=== PATIENT | male | born 1985 | race Caucasian/White ===

== ENCOUNTER 2019-11-17 18:02 | Observation (INO) | payer OTHER ==
--- NOTE | 2019-11-17 18:12 | PDOC ---
Rapid Medical Evaluation Time Seen by Provider: 11/17/19 18:08 Medical Evaluation: Allergies Allergy/AdvReac Type Severity Reaction Status Date / Time No Known Allergies Allergy Verified 04/12/13 12:42 11/17/19 18:09 I have performed a brief in-person evaluation of this patient. CC: left sided chest pain x3 days PE: RRR. No m/r/g. Left pectoral tenderness. Lungs CTAB. Orders: cardiac w/u Patient to proceed to ED for Further evaluation. Discharge Disposition - Diagnosis Musculoskeletal chest pain - Referrals - Patient Instructions - Post Discharge Activity
[2019-11-17 18:17] VITALS: BMI 29.5
--- NOTE | 2019-11-17 19:37 | PDOC ---
History of Present Illness - General Chief Complaint: Chest Pain Stated Complaint: CHEST PAIN Time Seen by Provider: 11/17/19 18:08 - History of Present Illness Initial Comments: 11/17/19 21:03 34 year old man with no pmhx whop resents with 3 days of L sided chest cramping and palpitations that comes on for 30mins at time and is associated with lightheadedness, dizziness and shortness of breath. He reports that the symptosm occur only while walking but occasionally occur when he is lying still. He also reports some tingling in hte L arm. He came in today because his symptoms were worse today. He denies any other complaints or symptoms. ROS GENERAL/CONSTITUTIONAL: No fever or chills. No weakness. HEAD, EYES, EARS, NOSE AND THROAT: No change in vision. No ear pain or discharge. No sore throat. CARDIOVASCULAR: + chest pain or shortness of breath RESPIRATORY: No cough, wheezing, or hemoptysis. GASTROINTESTINAL: No nausea, vomiting, diarrhea or constipation. GENITOURINARY: No dysuria, frequency, or change in urination. MUSCULOSKELETAL: No joint or muscle swelling or pain. No neck or back pain. SKIN: No rash NEUROLOGIC: No headache, vertigo, loss of consciousness, or change in strength/sensation. ENDOCRINE: No increased thirst. No abnormal weight change HEMATOLOGIC/LYMPHATIC: No anemia, easy bleeding, or history of blood clots. ALLERGIC/IMMUNOLOGIC: No hives or skin allergy. PE GENERAL: Awake, alert, and fully oriented, in no acute distress HEAD: No signs of trauma, normocephalic, atraumatic EYES: EOMI, sclera anicteric, conjunctiva clear ENT: oropharynx clear without exudates. Moist mucosa NECK: Normal ROM, supple LUNGS: No distress, speaks full sentences, clear to auscultation bilaterally HEART: Regular rate and rhythm, normal S1 and S2, no murmurs, rubs or gallops, peripheral pulses normal and equal bilaterally. CHEST: chest wall ttp ABDOMEN: Soft, nontender. No guarding, no rebound. No masses EXTREMITIES : Normal inspection, Normal range of motion, no edema. No clubbing or cyanosis. NEUROLOGICAL: Cranial nerves II through XII grossly intact. Normal speech, normal gait, no focal sensorimotor deficits SKIN: Warm, Dry, normal turgor, no rashes or lesions noted Assessment and Plan 34 year old man with no pmhx whop resents with 3 days of L sided chest cramping and palpitations that comes on for 30mins at time and is associated with lightheadedness, dizziness and shortness of breath. Consider arrythmia vs ACS vs electroylte derangement - cbc, cmp, trop, bnp, ekg, cxr, coags CXR: wnl EKG: sinus kyle at 49bpm, incomplete RBBB, T wave inversion in III, aVF. Although chest pain reproduible on palpation of the chest wall, pt had concerning story and T wave inversions on ekg per pt he was trying to see a table operator in the past but was unable to due to his insurance status WIll plan for admissio nfor cardiology workup Past History - Medical History Allergies/Adverse Reactions: Allergies Allergy/AdvReac Type Severity Reaction Status Date / Time No Known Allergies Allergy Verified 11/17/19 18:17 Home Medications: Ambulatory Orders Amoxicillin - [Amoxicillin 500mg Capsule -] 500 mg PO BID #20 capsule 11/18/19 COPD: No - Psycho-Social/Smoking History Smoking History: Never smoked Have you smoked in the past 12 months: No Information on smoking cessation initiated: No - Substance Abuse Hx (Audit-C & DAST Scrn) How often the patient has a drink containing alcohol: Never Score: In Men: 4 or > Positive; In Women: 3 or > Positive: 0 Screen Result (Pos requires Nsg. Audit-10AR): Negative *Physical Exam - Vital Signs Last Vital Signs Temp Pulse Resp BP Pulse Ox 99.2 F 53 L 17 139/87 100 11/17/19 18:12 11/17/19 18:12 11/17/19 18:12 11/17/19 18:12 11/17/19 18:12 ED Treatment Course - LABORATORY CBC & Chemistry Diagram: 11/18/19 06:20 11/18/19 06:20 Discharge - Discharge Information Problems reviewed: Yes Clinical Impression/Diagnosis: Chest pain, Near syncope Condition: Improved Disposition: HOME - Follow up/Referral - Patient Discharge Instructions - Post Discharge Activity
--- NOTE | 2019-11-17 19:57 | PDOC ---
Attending Attestation - Resident Resident Name: Theresa Brewer - ED Attending Attestation I have performed the following: I have examined & evaluated the patient, The case was reviewed & discussed with the resident, I agree w/resident's findings & plan - HPI HPI: 11/17/19 21:38 see resident hpi - Physicial Exam PE: 11/17/19 21:38 see resident exam - Medical Decision Making 11/17/19 21:39 34-year-old male with intermittent left-sided chest pain with associated palpitations and lightheadedness, possible near syncope EKG shows T wave abnormalities in leads III and aVF Pain is improved, there is some reproducible component though in light of associated symptoms we will hold for observation serial enzymes and further evaluation Discharge - Discharge Information Problems reviewed: Yes Clinical Impression/Diagnosis: Chest pain, Near syncope - Follow up/Referral - Patient Discharge Instructions - Post Discharge Activity
[2019-11-17 20:46] LABS: BASO % 0.4 % (0-2.0); EOS % 3.4 % (0-4.5); HEMATOCRIT 44.2 % (35.4-49); LYMPH % 28.7 % (8-40); MCHC 33.9 g/dl (32.0-35.9); MEAN CELL VOLUME 91.4 fl (80-96); MEAN PLT VOLUME 10.3 fl (7.5-11.1); MONO % 6.3 % (3.8-10.2); NEUT % 61.2 % (42.8-82.8); PLATELET COUNT 198 K/MM3 (134-434); RBC 4.84 M/mm3 (4.00-5.60); RDW 13.2 % (11.9-15.9); WHITE BLOOD COUNT 5.8 K/mm3 (4.0-10.0)
[2019-11-17 21:04] LABS: ALBUMIN 4.1 g/dl (3.4-5.0); ALK PHOS 90 U/L (45-117); BILIRUBIN,TOTAL 0.9 mg/dL (0.2-1); CHLORIDE 108 mmol/L (98-107); CO2 23 mmol/L (21-32); CREATININE 0.8 mg/dL (0.55-1.3); MAGNESIUM 2.4 mg/dL (1.8-2.4); SGPT/ALT 45 U/L (13-61); SODIUM 140 mmol/L (136-145)
[2019-11-17 21:05] LABS: ANION GAP 10 MMOL/L (8-16); BLOOD UREA NITROGEN 14.5 mg/dL (7-18); CALCIUM 8.7 mg/dL (8.5-10.1); GLUCOSE,RANDOM 81 mg/dL (74-106); POTASSIUM 3.4 mmol/L (3.5-5.1); SGOT/AST 27 U/L (15-37); TOT PROT 7.8 g/dl (6.4-8.2)
[2019-11-17 21:47] LABS: N-TERMINAL BNP 48.4 pg/ml (5-125)
[2019-11-17] MEDS ORDERED: IBUPROFEN 400 MG TABLET (FP) PO STA (23:01)
[2019-11-17] MEDS ORDERED: ASPIRIN 81 MG CHEWABLE TABLETS PO STA (23:11)
[2019-11-17] MEDS ORDERED: FAMOTIDINE 20 MG TABLET PO ONE (23:13)
[2019-11-17] MEDS ORDERED: FAMOTIDINE 20 MG TABLET ONE (23:21)
[2019-11-17] MEDS ORDERED: IBUPROFEN 400 MG TABLET (FP) PO ONE (23:21)
[2019-11-17] MEDS ORDERED: ASPIRIN 325 MG ENTERIC COATED TABLET (FP) ONE (23:21)
[2019-11-18] MEDS ORDERED: KCL 10 MEQ IVPB 10 MEQ/100 ML INFUS.BAG IVPB ONE ×3 (00:05→02:34)
[2019-11-18] MEDS: KCL 10 MEQ IVPB 10 MEQ/100 ML INFUS.BAG IVPB SCH ×3 (00:19→02:40)
[2019-11-18 00:20] LABS: CHOLESTEROL 188 mg/dL (50-200); HDL CHOLESTEROL 47 mg/dL (40-60); LDL CHOLESTEROL (ONLY SJRH) 122 mg/dL (5-100); TRIGLYCERIDES 86 mg/dL (0-150)
--- NOTE | 2019-11-18 00:35 | HP ---
CHIEF COMPLAINT: L sided CP x 3 days HISTORY OF PRESENT ILLNESS: Pt is a 34 yo M with no past medical history presenting to the ED with L sided chest pain for the past 3 days. Pt states it is accompanied with shortness of breath, light headedness, palpitations and L arm tingling that lasts for 30 minutes upon exertion, but does not occur at rest. Pt states this has been ongoing on exertion for the last 3 days but the symptoms worsened today so he decided to come to the ED. He states when there is CP, the pain radiates to the base of his anterior neck and feels like he is becoming SOB. Pt also states he feels the need to "scratch" at his chest despite the area not being pruritic. No rash is seen or appreciated. Pain is reproducible on palpation in the L pectoral region causing wincing. EKG showed sinus bradycardia and T wave inversions in III and aVF. CXR unremarkable. 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 Admits to CP, SOB, light headedness, neck "pain" during these episodes. Denies fever, chills, nausea, vomiting, diarrhea, constipation, urinary or bowel changes. PAST MEDICAL HISTORY: None PAST SURGICAL HISTORY: None Social History: Smoking: Denies Alcohol: Sometimes, drank Patron last night Drugs: Cocaine 5 years ago and occasional marijuana Allergies No Known Allergies Allergy (Verified 11/17/19 18:17) HOME MEDICATIONS: Home Medications Medication Instructions Recorded NK [No Known Home Medication] 11/17/19 REVIEW OF SYSTEMS CONSTITUTIONAL: Absent: fever, chills, diaphoresis, generalized weakness, malaise, loss of appetite, weight change HEENT: Absent: rhinorrhea, nasal congestion, throat pain, throat swelling, difficulty swallowing, mouth swelling, ear pain, eye pain, visual changes CARDIOVASCULAR: Admits to chest pain, light headedness, palpitations Absent: syncope, palpitations, irregular heart rate, lightheadedness, peripheral edema RESPIRATORY: Admits to SOB Absent: cough, dyspnea with exertion, orthopnea, wheezing, stridor, hemoptysis GASTROINTESTINAL: Absent: abdominal pain, abdominal distension, nausea, vomiting, diarrhea, constipation, melena, hematochezia GENITOURINARY: Absent: dysuria, frequency, urgency, hesitancy, hematuria, flank pain, genital pain MUSCULOSKELETAL: Left pectoral pain Absent: myalgia, arthralgia, joint swelling, back pain, neck pain SKIN: Absent: rash, itching, pallor HEMATOLOGIC/IMMUNOLOGIC: Absent: easy bleeding, easy bruising, lymphadenopathy, frequent infections ENDOCRINE: Absent: unexplained weight gain, unexplained weight loss, heat intolerance, cold intolerance NEUROLOGIC: Absent: headache, focal weakness or paresthesias, dizziness, unsteady gait, seizure, mental status changes, bladder or bowel incontinence PSYCHIATRIC: Absent: anxiety, depression, suicidal or homicidal ideation, hallucinations. PHYSICAL EXAMINATION Vital Signs - 24 hr 11/17/19 11/17/19 18:12 21:18 Temperature 99.2 F Pulse Rate 53 L Pulse Rate [ 51 L Radial] Respiratory 17 16 Rate Blood Pressure 139/87 Blood Pressure 102/87 [Left Arm] O2 Sat by Pulse 100 98 Oximetry (%) GENERAL: Awake, alert, and fully oriented, in no acute distress. HEAD: Normal with no signs of trauma. EYES: Pupils equal, round and reactive to light, extraocular movements intact, sclera anicteric, conjunctiva clear. No lid lag. EARS, NOSE, THROAT: Ears normal, nares patent, oropharynx clear without exudates. Moist mucous membranes. NECK: Normal range of motion, supple without lymphadenopathy, JVD, or masses. LUNGS: Breath sounds equal, clear to auscultation bilaterally. No wheezes, and no crackles. No accessory muscle use. HEART: Regular rate and bradycardic, normal S1 and S2 without murmur, rub or gallop. ABDOMEN: Soft, nontender, not distended, normoactive bowel sounds, no guarding, no rebound, no masses. No hepatomegaly or splenomegaly. MUSCULOSKELETAL: Pain to palpation on L pectoral region. Normal range of motion at all joints. No bony deformities or tenderness. No CVA tenderness. UPPER EXTREMITIES: 2+ pulses, warm, well-perfused. No cyanosis. No clubbing. No peripheral edema. LOWER EXTREMITIES: 2+ pulses, warm, well-perfused. No calf tenderness. No peripheral edema. NEUROLOGICAL: Cranial nerves II-XII intact. Normal speech. Normal gait. PSYCHIATRIC: Cooperative. Good eye contact. Appropriate mood and affect. SKIN: Warm, dry, normal turgor, no rashes or lesions noted, normal capillary refill. Laboratory Results - last 24 hr 11/17/19 11/17/19 11/17/19 19:11 19:11 23:30 WBC 5.8 RBC 4.84 Hgb 15.0 Hct 44.2 MCV 91.4 MCH 31.0 MCHC 33.9 RDW 13.2 Plt Count 198 MPV 10.3 Absolute Neuts (auto) 3.5 Neutrophils % 61.2 Lymphocytes % 28.7 Monocytes % 6.3 Eosinophils % 3.4 Basophils % 0.4 Nucleated RBC % 0 Sodium 140 Potassium 3.4 L Chloride 108 H Carbon Dioxide 23 Anion Gap 10 BUN 14.5 Creatinine 0.8 Est GFR (CKD-EPI)AfAm 135.08 Est GFR (CKD-EPI)NonAf 116.55 Random Glucose 81 Calcium 8.7 Magnesium 2.4 Total Bilirubin 0.9 AST 27 ALT 45 Alkaline Phosphatase 90 Creatine Kinase 276 246 Creatine Kinase Index 0.9 CK-MB (CK-2) 2.5 Troponin I < 0.02 < 0.02 B-Natriuretic Peptide 48.4 Total Protein 7.8 Albumin 4.1 Triglycerides 86 Cholesterol 188 Total LDL Cholesterol 122 H HDL Cholesterol 47 TSH 1.36 ASSESSMENT/PLAN: Pt is a 34 yo M with no PMHx presenting with L sided chest pain for the past 3 days accompanied by SOB, neck tightness and light headedness and L arm tingling on exertion lasting 30 mins, and reproducible in nature. #Chest Pain -Rule out ACS -Likely musculoskeletal due to being reproducible on palpation -Ibuprofen 400mg once -Admit to tele-observation -ASA 325mg -Pepcid due to possible symptoms related to GERD with tightness in neck; reports acid reflux symptoms in the past -Repeat EKG in AM -Trops negative x2, third pending in AM -Lipid profile to calculate ASCVD and see if appropriate for medical therapy #Hypokalemia -K+ 3.7, repleted -Follow up CMP in AM FEN -Repleted K+ (3.7) -Sodium controlled diet Prophylaxis -Lovenox 40mg SQ BID daily Dispo Admitted to tele-obs overnight. Trops negative x2, follow up on AM trop #3 and repeat EKG. Lipid profile ordered to determine if should be started on medical therapy. Continue to monitor. Family Medical History Family History: Unable to Obtain, Unremarkable (unremarkable) Problem List - Problem (1) Chest pain Code(s): R07.9 - CHEST PAIN, UNSPECIFIED (2) Near syncope Code(s): R55 - SYNCOPE AND COLLAPSE (3) Pharyngitis Code(s): J02.9 - ACUTE PHARYNGITIS, UNSPECIFIED Visit type - Emergency Visit Emergency Visit: Yes ED Registration Date: 11/17/19 Care time: The patient presented to the Emergency Department on the above date and was hospitalized for further evaluation of their emergent condition. - New Patient This patient is new to me today: Yes Date on this admission: 11/17/19 - Critical Care Critical Care patient: No ATTENDING PHYSICIAN STATEMENT I saw and evaluated the patient. I reviewed the resident's note and discussed the case with the resident. I agree with the resident's findings and plan as documented. SUBJECTIVE: OBJECTIVE: ASSESSMENT AND PLAN:
--- NOTE | 2019-11-18 00:42 | PN ---
Teaching Attending Note Name of Resident: Fabrice Mariscal ATTENDING PHYSICIAN STATEMENT I saw and evaluated the patient. I reviewed the resident's note and discussed the case with the resident. I agree with the resident's findings and plan as documented. SUBJECTIVE: This is a 34 year old man with no significant history who comes to the ED complaining of chest pain. The pain occurs with exertion and is located in the left side of his chest. He reports having palpitations, lightheadedness, and shortness of breath. He has been experiencing symptoms for 3 days. OBJECTIVE: Vital Signs Period Temp Pulse Resp BP Sys/[place] Pulse Ox Last 24 Hr 99.2 F 51-53 16-17 102-139/87-87 98-100 CHEST: (+) left sided tenderness with palpation HEART: S1S2, bradycardic LUNGS: Clear ABDOMEN: Soft, non-tender, non-distended, normal BS EXTREMITIES: No edema Laboratory Tests 11/17/19 11/17/19 11/17/19 19:11 19:11 23:30 WBC 5.8 RBC 4.84 Hgb 15.0 Hct 44.2 MCV 91.4 MCH 31.0 MCHC 33.9 RDW 13.2 Plt Count 198 MPV 10.3 Absolute Neuts (auto) 3.5 Neutrophils % 61.2 Lymphocytes % 28.7 Monocytes % 6.3 Eosinophils % 3.4 Basophils % 0.4 Nucleated RBC % 0 Sodium 140 Potassium 3.4 L Chloride 108 H Carbon Dioxide 23 Anion Gap 10 BUN 14.5 Creatinine 0.8 Est GFR (CKD-EPI)AfAm 135.08 Est GFR (CKD-EPI)NonAf 116.55 Random Glucose 81 Calcium 8.7 Magnesium 2.4 Total Bilirubin 0.9 AST 27 ALT 45 Alkaline Phosphatase 90 Creatine Kinase 276 246 Creatine Kinase Index 0.9 CK-MB (CK-2) 2.5 Troponin I < 0.02 < 0.02 B-Natriuretic Peptide 48.4 Total Protein 7.8 Albumin 4.1 Triglycerides 86 Cholesterol 188 Total LDL Cholesterol 122 H HDL Cholesterol 47 TSH 1.36 Home Medications Medication Instructions Recorded NK [No Known Home Medication] 11/17/19 ASSESSMENT AND PLAN: This is a 34 year old man with no significant history who presented to the ED with left-sided chest pain on exertion associated with palpitations, lightheadedness, and SOB. 1. Chest pain - Likely musculoskeletal as pain is reproducible with palpation - Observe on telemetry - Ibuprofen as needed - Pepcid - Serial troponins, lipid profile - Repeat EKG in AM 2. Hypokalemia - Replete potassium
[2019-11-18 07:47] LABS: BASO % 0.5 % (0-2.0); EOS % 4.7 % (0-4.5); HEMATOCRIT 43.3 % (35.4-49); HEMOGLOBIN 14.6 GM/dL (11.7-16.9); LYMPH % 31.3 % (8-40); MCH 30.8 pg (25.7-33.7); MCHC 33.7 g/dl (32.0-35.9); MEAN CELL VOLUME 91.5 fl (80-96); MEAN PLT VOLUME 9.5 fl (7.5-11.1); MONO % 6.6 % (3.8-10.2); NEUT % 56.9 % (42.8-82.8); PLATELET COUNT 182 K/MM3 (134-434); RBC 4.73 M/mm3 (4.00-5.60); RDW 13.3 % (11.9-15.9); WHITE BLOOD COUNT 4.9 K/mm3 (4.0-10.0)
[2019-11-18 08:02] LABS: ALBUMIN 3.7 g/dl (3.4-5.0); BLOOD UREA NITROGEN 12.8 mg/dL (7-18); CALCIUM 8.5 mg/dL (8.5-10.1); CREATININE 0.8 mg/dL (0.55-1.3); MAGNESIUM 2.6 mg/dL (1.8-2.4); PHOSPHOROUS 3.3 mg/dL (2.5-4.9); POTASSIUM 3.9 mmol/L (3.5-5.1); TOT PROT 6.9 g/dl (6.4-8.2)
[2019-11-18 09:02] VITALS: PULSE 54
[2019-11-18] MEDS ORDERED: FAMOTIDINE 10 MG TABLET PO SCH (10:00)
[2019-11-18] MEDS ORDERED: ENOXAPARIN NA (PORCINE) 40 MG/0.4 ML DISP.SYRIN SQ SCH (10:00)
[2019-11-18] MEDS ORDERED: FAMOTIDINE 20 MG TABLET ONE (11:22)
[2019-11-18] MEDS ORDERED: ENOXAPARIN NA (PORCINE) 40 MG/0.4 ML DISP.SYRIN SQ ONE (11:25)
--- NOTE | 2019-11-18 11:41 | EKG ---
Test Reason : Blood Pressure : / mmHG Vent. Rate : 053 BPM Atrial Rate : 053 BPM P-R Int : 154 ms QRS Dur : 102 ms QT Int : 442 ms P-R-T Axes : 033 001 012 degrees QTc Int : 414 ms SINUS BRADYCARDIA OTHERWISE NORMAL ECG WHEN COMPARED WITH ECG OF 17-NOV-2019 18:08, INCOMPLETE RIGHT BUNDLE BRANCH BLOCK IS NO LONGER PRESENT Confirmed by DELORIS ESCOTO MD ([id number]) on 11/18/2019 11:40:38 AM Referred By: Confirmed By:DELORIS ESCOTO MD
--- NOTE | 2019-11-18 11:51 | EKG ---
Test Reason : Blood Pressure : / mmHG Vent. Rate : 049 BPM Atrial Rate : 049 BPM P-R Int : 152 ms QRS Dur : 118 ms QT Int : 432 ms P-R-T Axes : 027 006 008 degrees QTc Int : 390 ms SINUS BRADYCARDIA INCOMPLETE RIGHT BUNDLE BRANCH BLOCK BORDERLINE ECG NO PREVIOUS ECGS AVAILABLE Confirmed by DELORIS ESCOTO MD ([id number]) on 11/18/2019 11:51:19 AM Referred By: Confirmed By:DELORIS ESCOTO MD
--- NOTE | 2019-11-18 14:23 | PN ---
Teaching Attending Note Name of Resident: Nubia Sigala ATTENDING PHYSICIAN STATEMENT I saw and evaluated the patient. I reviewed the resident's note and discussed the case with the resident. I agree with the resident's findings and plan as documented. 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 complains of L sided chest pain, that has improved compared to yesterday. no N/V. denies any palpitations here or as out pt . He has sore throat. he has episodes of feelign like he was going to pass out, and happened during the encounter where his body felt cold, with no palpitations, no VAZ , no light headedness, and no vertigo. He felt little pressure in L orthodox. otherwise he feels well. 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 no sick contact OBJECTIVE: NAD, awake, alert, cooperative , calm. oropharynx with erythema. + exudate on R side, and a follicular appearance with white heads on L side. Lungs: CTAB CV: RRR, no MRG . during all encounter his HR remained stable and regular Ext : No edema or erythema on upper or lower extremities. TTP over L sided chest ASSESSMENT AND PLAN: 34 y/o man with no sig PMH who presented with L sided chest pain . 1- L sided cp. atypical . no suspicion for ACS. musculoskeletal in etiology. EKG with sinus kyle. no st or TW changes. RBBB that was seen on first EKG, was not present on repeat one . trop neg x 2 no further w/u for CP. tele till later today to evaluate for any arrhythmias. Not sure why he has this feeling of near syncope. ? r/o arrhythmias. cxray is clear. covid pending - Might need prolonged cardiac monitoring as out pt 2- Pharyngitis: viral VS bacterial - obtain rapid strep and cx - follow COVID. - might have to treat with empiric Abx , even if rapid strep is neg , pending throat cx. Possible dc later today , if tele has no events
[2019-11-18 14:39] VITALS: BP 128/73; TEMP 98.8
--- NOTE | 2019-11-18 20:55 | DS ---
Physical Exam: SUBJECTIVE: Patient seen and examined. In no acute distress. Complaining of reproducible chest pain in left pectoralis region made worse when crossing his arm over his chest. Also said he has sore throat and headache. OBJECTIVE: Vital Signs Period Temp Pulse Resp BP Sys/[place] Pulse Ox Last 24 Hr 98.8 F-99.0 F 51-66 12-18 102-128/73-87 97-99 PHYSICAL EXAM GENERAL: The patient is awake, alert, and fully oriented, in no acute distress. HEAD: Normal with no signs of trauma. EYES: PERRL, extraocular movements intact, sclera anicteric, conjunctiva clear. ENT: Throat is erythematous without exudate NECK: Trachea midline, full range of motion, supple. LUNGS: Breath sounds equal, clear to auscultation bilaterally, no wheezes, no crackles, no accessory muscle use. HEART: tachy with regular rhythm. ABDOMEN: Soft, nontender, nondistended MSK: tenderness to palpation along left pectoralis muscles. EXTREMITIES: 2+ pulses, warm, well-perfused, no edema. NEUROLOGICAL: Cranial nerves II through XII grossly intact. Normal speech, gait not observed. PSYCH: Normal mood, normal affect. SKIN: Warm, dry, normal turgor, no rashes or lesions noted. LABS Laboratory Results - last 24 hr 11/17/19 11/17/19 11/17/19 19:11 19:11 23:30 WBC 5.8 RBC 4.84 Hgb 15.0 Hct 44.2 MCV 91.4 MCH 31.0 MCHC 33.9 RDW 13.2 Plt Count 198 MPV 10.3 Absolute Neuts (auto) 3.5 Neutrophils % 61.2 Lymphocytes % 28.7 Monocytes % 6.3 Eosinophils % 3.4 Basophils % 0.4 Nucleated RBC % 0 Sodium 140 Potassium 3.4 L Chloride 108 H Carbon Dioxide 23 Anion Gap 10 BUN 14.5 Creatinine 0.8 Est GFR (CKD-EPI)AfAm 135.08 Est GFR (CKD-EPI)NonAf 116.55 Random Glucose 81 Calcium 8.7 Phosphorus Magnesium 2.4 Total Bilirubin 0.9 AST 27 ALT 45 Alkaline Phosphatase 90 Creatine Kinase 276 246 Creatine Kinase Index 0.9 1.0 CK-MB (CK-2) 2.5 2.5 Troponin I < 0.02 < 0.02 B-Natriuretic Peptide 48.4 Total Protein 7.8 Albumin 4.1 Triglycerides 86 Cholesterol 188 Total LDL Cholesterol 122 H HDL Cholesterol 47 TSH 1.36 Group A Strep Rapid 11/18/19 11/18/19 11/18/19 06:20 06:20 13:45 WBC 4.9 RBC 4.73 Hgb 14.6 Hct 43.3 MCV 91.5 MCH 30.8 MCHC 33.7 RDW 13.3 Plt Count 182 MPV 9.5 Absolute Neuts (auto) 2.8 Neutrophils % 56.9 Lymphocytes % 31.3 Monocytes % 6.6 Eosinophils % 4.7 H Basophils % 0.5 Nucleated RBC % 0 Sodium 140 Potassium 3.9 Chloride 109 H Carbon Dioxide 25 Anion Gap 6 L BUN 12.8 Creatinine 0.8 Est GFR (CKD-EPI)AfAm 135.08 Est GFR (CKD-EPI)NonAf 116.55 Random Glucose 83 Calcium 8.5 Phosphorus 3.3 Magnesium 2.6 H Total Bilirubin 1.0 AST 22 ALT 40 Alkaline Phosphatase 81 Creatine Kinase Creatine Kinase Index CK-MB (CK-2) Troponin I B-Natriuretic Peptide Total Protein 6.9 Albumin 3.7 Triglycerides Cholesterol Total LDL Cholesterol HDL Cholesterol TSH Group A Strep Rapid Negative HOSPITAL COURSE: Patient came to the ED presenting with chest pain that has been worsening over 3 days and a sore throat today. His chest pain has been worse with movement and exertion and today he had SOB. On exam the patient was in no pain at rest and his pain was reproducible with palpation and movement. Two EKGs were done that showed sinus tachycardia. He was monitored with no significant signs of cardiac ischemia or SOB. His rapid strep test was negative. Throat cultures were also sent and are pending. He was discharged with 5 days of amoxicillin and told to follow up with his primary doctor. Date of Admission:11/17/19 Date of Discharge: 11/18/19 Minutes to complete discharge: 30 Discharge Summary Problems reviewed: Yes Reason For Visit: CHEST PAIN Current Active Problems Chest pain (Acute) Near syncope (Acute) Pharyngitis (Acute) Condition: Improved - Instructions Diet, Activity, Other Instructions: You were evaluated in the hospital for left-sided chest pain. Your examination was notable for localized tenderness. Laboratory results were not suggestive of any emergency heart conditions. Your electrocardiogram showed a slower than normal heart rate. Your symptoms were mostly likely due to muscle strain. Your throat soreness prompted testing for Streptococcus, which was negative. You will be prescribed antibiotics as a precautions while your throat culture is pending MEDICATIONS: - START taking Amoxicillin 500mg, twice daily. Take for 10 days Additional Instructions: - please take over the counter ibuprofen for muscle strain - avoid excessive fat intake as labwork showed that you have elevated cholesterol. Aim to lose 5lbs within the next month - stay hydrated Please follow-up with the physicians below: - Primary Care Physician: to discuss your recent hospital stay. Discuss check your cholesterol levels --if you don't have a regular doctor, please come to our [facility] - please follow up with Dr. 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 Due to sore throat you need to quarantine until you are called with your test results for further instructions Referrals: Armond Rincon MD [Staff Physician] - Disposition: HOME - Home Medications Comprehensive Discharge Medication List: Ambulatory Orders Amoxicillin - [Amoxicillin 500mg Capsule -] 500 mg PO BID #20 capsule 11/18/19 This patient is new to me today: Yes Date on this admission: 11/20/19 Emergency Visit: Yes ED Registration Date: 11/17/19 Care time: The patient presented to the Emergency Department on the above date and was hospitalized for further evaluation of their emergent condition. Critical Care patient: No - Discharge Referral Referred to [facility] No ATTENDING PHYSICIAN STATEMENT I saw and evaluated the patient. I reviewed the resident's note and discussed the case with the resident. I agree with the resident's findings and plan as documented. SUBJECTIVE: OBJECTIVE: ASSESSMENT AND PLAN:
== END 2019-11-18 20:30 | disposition home or self-care (01) ==
LOC: JER 18:02 → JERBED 21:07
PROVIDERS: ADMIT Internal Medicine; ATTEND Internal Medicine
PROC: 3E023GC Introduction of Other Therapeutic Substance into Muscle, Percutaneous Approach (ICD-10-PCS; principal; 2019-11-17)
PROC: 3E033GC Introduction of Other Therapeutic Substance into Peripheral Vein, Percutaneous Approach (ICD-10-PCS; 2019-11-17)
DX: R07.9 Chest pain, unspecified (principal); R55 Syncope and collapse; J02.9 Acute pharyngitis, unspecified; Z29.9 Encounter for prophylactic measures, unspecified
CPT/HCPCS: 36415; 71046-TC-FY; 80053; 80061; 82550; 82553; 83721; 83735; 83880; 84100; 84443; 84484; 85025; 87070; 87880; 93005; 93010; 96365; 99285-25; G0378; U0003

== ENCOUNTER 2019-12-10 20:07 | Emergency (ER) | payer OTHER ==
[2019-12-10 20:13] VITALS: BP 133/86; PULSE 54; TEMP 98.7; BMI 28.7
[2019-12-10] MEDS ORDERED: KETOROLAC TROMETHAMINE 30 MG/1 ML VIAL IM ONE (20:55)
[2019-12-10] MEDS ORDERED: KETOROLAC TROMETHAMINE 30 MG/1 ML VIAL ONE (20:59)
--- NOTE | 2019-12-10 21:32 | PDOC ---
History of Present Illness - General Chief Complaint: Sore Throat Stated Complaint: INFECTION/MOUTH Time Seen by Provider: 12/10/19 20:47 History Source: Patient Exam Limitations: No Limitations - History of Present Illness Initial Comments: 12/10/19 21:27 34-year-old male denies past medical history presents complaining of sore throat and right-sided ear pain x 7 days. Presented to ED November 16 for chest pain was admitted and discharged after cardiac work-up, negative cover test and negative strep test given he mentioned sore throat at that time as well. Patient completed 5-day course of amoxicillin approximately 2.5 weeks ago which "made me feel better ". followed up with a major assembler last week which "all resulted well". Denies fever, chills, nausea, vomiting, inability to drink fluids or tolerate meals, abdominal pain, diarrhea, weight loss, changes in speech or any other complaint. ROS: as above PE: GENERAL: well-appearing, NAD, speaking full sentences HEAD: NCAT EYES: Pupils equal, round and reactive to light, sclera anicteric, conjunctiva clear ENT: Mild erythema to right ear canal, pharynx: Mild erythema, no exudate, uvula midline NECK: supple, no lymphadenopathy CHEST: nontender RESP: clear, no w/r/r CARDIO: rrr, no m/g/r ABD: +BS, soft, nontender, non distended BACK: no midline spinal ttp, no CVAT EXTREMITIES: Normal range of motion, no edema NEUROLOGICAL: Normal speech, normal gait SKIN: Warm, Dry Is this a multiple visit Asthma Patient?: No Past History - Medical History Allergies/Adverse Reactions: Allergies Allergy/AdvReac Type Severity Reaction Status Date / Time No Known Allergies Allergy Verified 12/10/19 20:13 Home Medications: Ambulatory Orders Amoxicillin - [Amoxicillin 500mg Capsule -] 500 mg PO BID #20 capsule 11/18/19 Amoxicillin - [Amoxicillin 500mg Capsule -] 500 mg PO BID #14 capsule 12/10/19 COPD: No - Psycho-Social/Smoking History Smoking History: Never smoked Have you smoked in the past 12 months: No - Substance Abuse Hx (Audit-C & DAST Scrn) How often the patient has a drink containing alcohol: Never Score: In Men: 4 or > Positive; In Women: 3 or > Positive: 0 Screen Result (Pos requires Nsg. Audit-10AR): Negative *Physical Exam - Vital Signs Last Vital Signs Temp Pulse Resp BP Pulse Ox 98.7 F 54 L 18 133/86 98 12/10/19 20:10 12/10/19 20:10 12/10/19 20:10 12/10/19 20:10 12/10/19 20:10 ED Treatment Course - Medications Given in the ED: ED Medications Discontinued Medications Generic Name Dose Route Start Last Admin Trade Name Jeff PRN Reason Stop Dose Admin Ketorolac Tromethamine 30 mg 12/10/19 20:55 12/10/19 21:04 Toradol Injection - IM 12/10/19 20:56 30 mg ONCE ONE Administration Medical Decision Making - Medical Decision Making 12/10/19 21:30 34-year-old male denies past medical history presents complaining of sore throat and right-sided ear pain x 7 days. Presented to ED November 16 for chest pain was admitted and discharged after cardiac work-up, negative cover test and negative strep test given he mentioned sore throat at that time as well. Patient completed 5-day course of amoxicillin approximately 2.5 weeks ago which "made me feel better ". followed up with a major assembler last week which "all resulted well". Denies fever, chills, nausea, vomiting, inability to drink fluids or tolerate meals, abdominal pain, diarrhea, weight loss, changes in speech or any other complaint. 12/10/19 21:31 Patient does not wish to wait for rapid strep result will treat with amoxicillin for pharyngitis Advised patient to follow-up with PMD next week If any concerning symptoms return to ED immediately Discharge - Discharge Information Problems reviewed: Yes Clinical Impression/Diagnosis: Pharyngitis Qualifiers: Pharyngitis/tonsillitis etiology: unspecified etiology Qualified Code(s): J02.9 - Acute pharyngitis, unspecified Condition: Stable Disposition: HOME - Admission No - Additional Discharge Information Prescriptions: Amoxicillin - [Amoxicillin 500mg Capsule -] 500 mg PO BID #14 capsule - Follow up/Referral Referrals: [facility] [place] [facility] [Provider Group] - Patient Discharge Instructions Additional Instructions: Follow-up with your doctor next week, if you do not have a primary care doctor follow-up with [facility] Take amoxicillin 500 mg 1 tablet twice a day for 7 days Take ibuprofen 600 mg every 6 hours as needed for pain If you develop fever, chills, difficulty swallowing, shortness of breath, nausea, vomiting, or any concerning symptom return to ED - Post Discharge Activity
== END 2019-12-10 23:40 | disposition home or self-care (01) ==
LOC: JERFT 20:07
PROC: 3E0333Z Introduction of Anti-inflammatory into Peripheral Vein, Percutaneous Approach (ICD-10-PCS; principal; 2019-12-10)
DX: J02.9 Acute pharyngitis, unspecified (principal)
CPT/HCPCS: 87070; 87880; 99284-25

== ENCOUNTER 2020-01-14 19:22 | Emergency (ER) | payer OTHER ==
[2020-01-14 19:36] VITALS: BMI 29.2
[2020-01-14] MEDS ORDERED: KETOROLAC TROMETHAMINE 30 MG/1 ML VIAL IVPUSH ONE (20:39)
[2020-01-14] MEDS ORDERED: KETOROLAC TROMETHAMINE 30 MG/1 ML VIAL ONE (20:59)
[2020-01-14 21:30] LABS: BASO % 0.4 % (0-2.0); HEMATOCRIT 44.4 % (35.4-49); HEMOGLOBIN 15.3 GM/dL (11.7-16.9); LYMPH % 33.9 % (8-40); MCH 31.3 pg (25.7-33.7); MCHC 34.5 g/dl (32.0-35.9); MEAN CELL VOLUME 90.7 fl (80-96); MEAN PLT VOLUME 9.4 fl (7.5-11.1); MONO % 6.6 % (3.8-10.2); NEUT % 54.1 % (42.8-82.8); PLATELET COUNT 182 K/MM3 (134-434); RDW 12.7 % (11.9-15.9); WHITE BLOOD COUNT 6.5 K/mm3 (4.0-10.0)
[2020-01-14 21:36] LABS: PH,URINE 6.5 (5.0-8.0); URINE APPEARANCE CLEAR; URINE BILIRUBIN NEGATIVE (NEGATIVE); URINE COLOR YELLOW; URINE GLUCOSE (UA) NEGATIVE (NEGATIVE); URINE KETONE NEGATIVE (NEGATIVE); URINE LEUK ESTERASE NEGATIVE (NEGATIVE); URINE NITRITE NEGATIVE (NEGATIVE); URINE PROTEIN NEGATIVE (NEGATIVE); URINE UROBILINOGEN 0.2 mg/dL (0.2-1.0)
--- NOTE | 2020-01-14 21:48 | PDOC ---
History of Present Illness <Prosper Hawkins - Last Filed: 01/14/20 23:11> - General History Source: Patient Exam Limitations: No Limitations - History of Present Illness Initial Comments: 01/14/20 21:46 34-year-old male no significant past medical history presenting to the ED with 1 day of dizziness and 3 days of right lower quadrant abdominal pain. 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 Patient states that his dizziness is associated with standing up quickly and moving his head left or right quickly and is described as the room spinning and resolves on its own within 10 seconds. Patient describes abdominal pain worse with bending lifting twisting not associated with nausea vomiting diarrhea. Pt otherwise denies: fevers, chills, syncope, lightheadedness, dizziness, headaches, neck pain, chest pain, shortness of breath, palpitations, back pain, abdominal pain, nausea, vomiting, diarrhea, constipation. <Mio Rose - Last Filed: 01/14/20 23:51> - General Chief Complaint: Pain Stated Complaint: R SIDE ABDOMINAL PAIN Time Seen by Provider: 01/14/20 20:29 Past History <Prosper Hawkins - Last Filed: 01/14/20 23:11> - Medical History COPD: No - Psycho-Social/Smoking History Smoking History: Never smoked Have you smoked in the past 12 months: No - Substance Abuse Hx (Audit-C & DAST Scrn) How often the patient has a drink containing alcohol: Never Score: In Men: 4 or > Positive; In Women: 3 or > Positive: 0 Screen Result (Pos requires Nsg. Audit-10AR): Negative <Mio Rose - Last Filed: 01/14/20 23:51> - Medical History Allergies/Adverse Reactions: Allergies Allergy/AdvReac Type Severity Reaction Status Date / Time No Known Allergies Allergy Verified 01/14/20 19:32 Home Medications: Ambulatory Orders Amoxicillin - [Amoxicillin 500mg Capsule -] 500 mg PO BID #20 capsule 11/18/19 Amoxicillin - [Amoxicillin 500mg Capsule -] 500 mg PO BID #14 capsule 12/10/19 Meclizine HCl 12.5 mg PO BID 7 Days #15 tablet 01/14/20 *Physical Exam - Vital Signs Last Vital Signs Temp Pulse Resp BP Pulse Ox 98 F 61 18 128/77 99 01/14/20 19:28 01/14/20 19:28 01/14/20 19:28 01/14/20 19:28 01/14/20 19:28 <Prosper Hawkins - Last Filed: 01/14/20 23:11> - Vital Signs Last Vital Signs Temp Pulse Resp BP Pulse Ox 98 F 61 18 128/77 99 01/14/20 19:28 01/14/20 19:28 01/14/20 19:28 01/14/20 19:28 01/14/20 19:28 - Physical Exam 01/14/20 21:47 Gen: AAOx 3, no acute distress, comfortable, no signs of respiratory distress HENT: atraumatic, normocephalic with no laceration or contusion. Nasal mucosa without erythema. Oropharynx without erythema or exudates. Mucous membranes moist. EYES: PERRL, EOM intact, conjunctiva pink NECK: supple; trachea midline; no JVD, no lymphadenopathy, or thyromegaly CV: RRR no murmurs, gallops, or rubs. CHEST: CTA b/l no wheezing, rales or rhonchi ABD: +BS/ND. no TTP; soft, no rebound, no guarding EXTREMITY: no cyanosis or erythema. 2+ dorsalis pedis, posterior tibial, and radial pulse. No pedal edema; no calf swelling or tenderness SKIN: no rash, warm and dry, no diaphoresis HEME: no purpura or ecchymosis NEURO: normal speech, CN II-XII intact, sensation intact, normal gait, able to tip toe and heel walk, romberg and pronator drift absent, no cerebellar deficits, normal finger to nose, heel to alvares, rapid alternating movements, no tremor, no dysmetria MS: 5/5 strength in all extremities, FROM intact in all extremities <Mio Rose - Last Filed: 01/14/20 23:51> ED Treatment Course - LABORATORY CBC & Chemistry Diagram: 01/14/20 21:07 01/14/20 20:54 - ADDITIONAL ORDERS Additional order review: Laboratory Results 01/14/20 01/14/20 01/14/20 20:54 20:54 20:54 Sodium 144 Potassium 3.9 Chloride 110 H Carbon Dioxide 30 Anion Gap 4 L BUN 25.6 H Creatinine 1.0 Est GFR (CKD-EPI)AfAm 113.31 Est GFR (CKD-EPI)NonAf 97.76 Random Glucose 91 Calcium 9.2 Total Bilirubin 0.4 AST 23 ALT 35 Alkaline Phosphatase 101 Creatine Kinase 318 H Creatine Kinase Index 0.9 CK-MB (CK-2) 2.9 Troponin I < 0.02 Total Protein 7.7 Albumin 4.0 Lipase 135 Urine Color Yellow Urine Appearance Clear Urine pH 6.5 Ur Specific Sandborn 1.023 Urine Protein Negative Urine Glucose (UA) Negative Urine Ketones Negative Urine Blood Negative Urine Nitrite Negative Urine Bilirubin Negative Urine Urobilinogen 0.2 Ur Leukocyte Esterase Negative 01/14/20 21:07 RBC 4.90 MCV 90.7 MCHC 34.5 RDW 12.7 MPV 9.4 Neutrophils % 54.1 Lymphocytes % 33.9 Monocytes % 6.6 Eosinophils % 5.0 H Basophils % 0.4 - Medications Given in the ED: ED Medications Discontinued Medications Generic Name Dose Route Start Last Admin Trade Name Freq PRN Reason Stop Dose Admin Ketorolac Tromethamine 30 mg 01/14/20 20:39 01/14/20 21:08 Toradol Injection - IVPUSH 01/14/20 20:40 30 mg ONCE ONE Administration Sodium Chloride 1,000 ml 01/14/20 22:41 01/14/20 23:03 Normal Saline - IV 01/14/20 22:42 1,000 ml ONCE ONE Administration <Shruthi,Prosper - Last Filed: 01/14/20 23:11> - LABORATORY CBC & Chemistry Diagram: 01/14/20 21:07 01/14/20 20:54 - ADDITIONAL ORDERS Additional order review: Laboratory Results 01/14/20 20:54 Urine Color Yellow Urine Appearance Clear Urine pH 6.5 Ur Specific [place]born 1.023 Urine Protein Negative Urine Glucose (UA) Negative Urine Ketones Negative Urine Blood Negative Urine Nitrite Negative Urine Bilirubin Negative Urine Urobilinogen 0.2 Ur Leukocyte Esterase Negative 01/14/20 21:07 RBC 4.90 MCV 90.7 MCHC 34.5 RDW 12.7 MPV 9.4 Neutrophils % 54.1 Lymphocytes % 33.9 Monocytes % 6.6 Eosinophils % 5.0 H Basophils % 0.4 - Medications Given in the ED: ED Medications Discontinued Medications Generic Name Dose Route Start Last Admin Trade Name Freq PRN Reason Stop Dose Admin Ketorolac Tromethamine 30 mg 01/14/20 20:39 01/14/20 21:08 Toradol Injection - IVPUSH 01/14/20 20:40 30 mg ONCE ONE Administration <Mio Rose - Last Filed: 01/14/20 23:51> Medical Decision Making - Medical Decision Making 01/14/20 23:10 The patient was seen and evaluated in conjunction with ZEINAB Rose under my direct supervision, ancillary studies were reviewed. I independently interviewed and evaluated the patient and I agree with the plan as outlined by ZEINAB Rose. Suspect pt has dehydration as cause of his lightheadeness as he works outside labs reviewed no signs of anemia, metabolid derangement his R flank pain is likely muscular - gradual onset, worse with movement, without f/c, n/v, urinary/bowel sypmtmos. abd exam completley unremarkable - soft nontender, neg murphies, neg ttp at mcburnies - moderate ttp at external obliques and reproducible with movement. hydration/toradol for treatment ekg unremarkable will dc with supprotive care. 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 Patient discharged with meclizine Patient instructed on proper hydration as well as to follow-up with his PCP Pt appears well and is safe and stable for discharge with strict return precautions including signs and symptoms requring immediate return to the ED Supportive care instructions explained and given to pt. Reasons to return emergently to ER explained and given. Importance of follow up with PMD and other specialists as indicated stressed to pt. Pt verbalized understanding of instructions. Pt to follow up with PMD in 2 days. <Mio Rose - Last Filed: 01/14/20 23:51> Discharge <Prosper Hawkins - Last Filed: 01/14/20 23:11> - Discharge Information Problems reviewed: Yes <Mio Rose - Last Filed: 01/14/20 23:51> - Discharge Information Clinical Impression/Diagnosis: Vertigo Condition: Stable Disposition: HOME - Additional Discharge Information Prescriptions: Meclizine HCl 12.5 mg PO BID 7 Days #15 tablet - Follow up/Referral Referrals: Linda Chirinos MD [Staff Physician] - - Patient Discharge Instructions Patient Printed Discharge Instructions: DI for Dehydration -- Adult, DI for Vertigo Additional Instructions: PLEASE FOLLOW UP WITH DR CHIRINOS
[2020-01-14 22:06] LABS: BILIRUBIN,TOTAL 0.4 mg/dL (0.2-1); BLOOD UREA NITROGEN 25.6 mg/dL (7-18); CALCIUM 9.2 mg/dL (8.5-10.1); POTASSIUM 3.9 mmol/L (3.5-5.1); TOT PROT 7.7 g/dl (6.4-8.2)
[2020-01-14] MEDS ORDERED: SODIUM CHLORIDE 0.9% 500 ML INFUS.BAG IV ONE (22:41)
[2020-01-15 00:07] VITALS: BP 120/78; PULSE 58; TEMP 98.6
--- NOTE | 2020-01-15 14:58 | EKG ---
Test Reason : Blood Pressure : / mmHG Vent. Rate : 051 BPM Atrial Rate : 051 BPM P-R Int : 158 ms QRS Dur : 114 ms QT Int : 454 ms P-R-T Axes : 038 -14 008 degrees QTc Int : 418 ms SINUS BRADYCARDIA OTHERWISE NORMAL ECG WHEN COMPARED WITH ECG OF 18-NOV-2019 10:38, NO SIGNIFICANT CHANGE WAS FOUND Confirmed by Saud Lewis ([id number]) on 01/15/2020 2:57:39 PM Referred By: Confirmed By:Saud Lewsi
== END 2020-01-15 00:05 | disposition home or self-care (01) ==
LOC: JER 19:22
PROC: 3E0333Z Introduction of Anti-inflammatory into Peripheral Vein, Percutaneous Approach (ICD-10-PCS; principal; 2020-01-14)
DX: H81.10 Benign paroxysmal vertigo, unspecified ear (principal)
CPT/HCPCS: 36415; 80053; 81003; 82550; 82553; 83690; 84484; 85025; 93005; 93010; 99284-25

== ENCOUNTER 2020-02-04 19:35 | Emergency (ER) | payer OTHER ==
[2020-02-04 19:44] VITALS: BP 125/77; PULSE 68; TEMP 98; BMI 35.1
--- OUTSIDE RECORDS SUMMARY | 2020-02-04 19:47 | XMS ---
:1985 Author Organization [facility] Care Team Providers Name Role Phone ED STAFF PHYSICIANGLORY Unavailable Unavailable ED STAFF PHYSICIAN Unavailable Unavailable ED STAFF PHYSICIAN, STAFF Unavailable Unavailable Re-disclosure Warning The records that you are about to access may contain information from federally- assisted alcohol or drug abuse programs. If such information is present, then the following federally mandated warning applies: This information has been disclosed to you from records protected by federal confidentiality rules (42 CFR part 2). The federal rules prohibit you from making any further disclosure of this information unless further disclosure is expressly permitted by the written consent of the person to whom it pertains or as otherwise permitted by 42 CFR part 2. A general authorization for the release of medical or other information is NOT sufficient for this purpose. The Federal rules restrict any use of the information to criminally investigate or prosecute any alcohol or drug abuse patient.The records that you are about to access may contain highly sensitive health information, the redisclosure of which is protected by Article 27-F of the [facility] Public Health law. If you continue you may haveaccess to information: Regarding HIV / AIDS; Provided by facilities licensed or operated by the [facility] Office of Mental Health; or Provided by the [facility] Office for People With Developmental Disabilities. If such information is present, then the following [facility] mandated warning applies: This information has been disclosed to you from confidential records which are protected by state law. State law prohibits you from making any further disclosure of this information without the specific written consent of the person to whom it pertains, or as otherwise permitted by law. Any unauthorized further disclosure in violation of state law may result in a fine or nursing home sentence or both. A general authorization for the release of medical or other information is NOT sufficient authorization for further disclosure. Encounters Encounter Providers Location Date Indications Data Source(s ) Emergency Attender: ED STAFF H 01/20/2020 [facility] PHYSICIANAttender: 07:57:00 PM EDT [facility] STAFF ED STAFF - 01/20/2020 PHYSICIANAdmitter: 11:29:00 PM EDT ED STAFF PHYSICIAN Patient discharged. Emergency Attender: GLORY ED STAFF H 12/14/2019 08:29:00 AM [facility] PHYSICIANAttender: STAFF ED EDT - 12/14/2019 [facility] STAFF PHYSICIANAdmitter: 01:24:00 PM EDT [facility] ED STAFF PHYSICIAN Patient discharged. Medications Medication Brand Start Product Dose Route Administrative Pharmacy [facility] Indications Reaction Description Data Name Date Form Instructions Instructions Source(s) Ibuprofen ibupro 1 complet [facility] 400 MG Oral fen ed [facility] Tablet 400 mg Medical ibuprofen Tablet Center 400 mg , Tablet, Ordere Ordered By: d By: rosy Posada MDDirection Severino, s: 1 tablet MDDire oral every ctions six hours : 1 PRN pain tablet oral every six hours PRN pain 8 HR acetam 1 complet [facility] Acetaminoph inophe ed [place] s en 650 MG n 650 Medical Extended mg Center Release Tablet Oral Tablet Extend acetaminoph ed en 650 mg Releas Tablet e, Extended Ordere Release, d By: Ordered By: Soheila Swiftirection a, s: 1 tablet PADire oral every ctions eight hours : 1 PRN pain tablet oral every eight hours PRN pain sertraline complet [facility] 50 mg ed [facility] Tablet Medical Center Amoxicillin amoxic 1 complet Truong nt 875 MG / illin- ed [facility] Clavulanate pot Medical 125 MG Oral clavul Center Tablet anate amoxicillin 875 -pot mg-125 clavulanate mg 875 mg-125 Tablet mg Tablet, , Ordered By: Carole avila By: Edwige Becerra s: 1 tablet Soheila oral every a, twelve PADire hours with ctions or after : 1 food tablet oral every twelve hours with or after food meclizine complet [facility] 12.5 mg ed [facility] 12 HR dextro 1 complet Mucinex DM Truong nt Dextrometho methor ed Jose Antonio s rphan castillo-g Medical Hydrobromid uaifen Center e 30 MG / esin Guaifenesin (Mucin 600 MG ex DM) Extended 600 Release mg-30 Oral Tablet mg [Mucinex Tablet DM] Extend dextrometho ed rphan-guaif Releas enesin e 12 (Mucinex hr, DM) 600 Ordere mg-30 mg d By: Tablet Margar Extended lacho Release 12 Soheila hr, Ordered a, By: Alfredo Aleman ctions Villara, : 1 PADirection tablet s: 1 tablet oral oral twice twice a day a day ibuprofen complet [facility] 600 mg [facility] Insurance Providers Payer name Policy type Policy ID Covered Covered libertarian's Policy P babak / Coverage libertarian ID relationship to [facility] type [place] MEDICAID [id number] SP [id number] PENDING EXCHANGE SELF PAY SP INSURANCE Problems, Conditions, and Diagnoses Code Display Name Description Problem Type Effective Data Sour ce(s) Dates R51 Headache HEADACHE Diagnosis 01/20/2020 [facility] 07:57:00 PM Medical Cente r EDT R42 Dizziness and DIZZINESS AND Diagnosis 01/20/2020 [facility] giddiness GIDDINESS 07:57:00 PM Medical Cente r EDT R53.1 Weakness WEAKNESS Diagnosis 01/20/2020 [facility] 07:57:00 PM Medical Cente r EDT E11.9 Type 2 diabetes TYPE 2 DIABETES Diagnosis 12/14/2019 [facility] mellitus without MELLITUS WITHOUT 08:29:00 AM [facility] complications COMPLICATIONS EDT R07.89 Other chest pain OTHER CHEST PAIN Diagnosis 12/14/2019 [facility] 08:29:00 AM Medical Cente r EDT Results ID Date Data Source HematologyRou.[id number] 01/20/2020 10:22:00 PM EDT [facility] 0400 Name Value Range Interpretation Description Data Sup porting Code Source(s) Document(s ) Leukocytes 4.4-11.0 <content [facility] [#/volume] in styleCode="Bold [facility] Blood by ">White Blood Medical Automated count Cell Count Center </content>6.25 KCUMM<content styleCode="Ital ics"> (4.4-11.0 KCUMM)</content > Hematocrit 41.0-53. <content [facility] [Volume 0 styleCode="[place] Fraction] of ">Hematocrit Medical Blood by </content>46.9 Center Automated count %<content styleCode="Ital ics"> (41.0-53.0 %)</content> Erythrocyte mean 80.0-100 <content [facility] corpuscular .0 styleCode="[place] volume [Entitic ">Mean Medical volume] by Corpuscular Center Automated count Volume </content>89.3 FL<content styleCode="Ital ics"> (80.0-100.0 FL)</content> Erythrocytes 4.4-5.9 <content [facility] [#/volume] in styleCode="[place] Blood by ">Red Blood Medical Automated count Cell Count Center </content>5.25 MCUMM<content styleCode="Ital ics"> (4.4-5.9 MCUMM)</content > Erythrocyte mean 26.0-34. <content [facility] corpuscular 0 styleCode="[place] hemoglobin ">Mean Medical [Entitic mass] Corposcular Center by Automated Hemoglobin count </content>30.7 PG<content styleCode="Ital ics"> (26.0-34.0 PG)</content> Hemoglobin 13.5-17. <content [facility] [Mass/volume] in 5 styleCode="[place] Blood ">Hemoglobin Medical </content>16.1 Center G/DL<content styleCode="Ital ics"> (13.5-17.5 G/DL)</content> Erythrocyte 11.5-14. <content [facility] distribution 5 styleCode="[place] width [Ratio] by ">Red Cell Medical Automated count Distribution Center Width </content>12.4 %<content styleCode="Ital ics"> (11.5-14.5 %)</content> UNK 0 <content Saint styleCode="[place] [place] ">Nucleated Red Medical Blood Cell Center </content>0.0 /100<content styleCode="Ital ics"> (0 /100)</content> UNK 0.0 <content Saint styleCode="[place] ">Nucleated Red Medical Blood Cell Center Count </content>0.00 KCUMM<content styleCode="Ital ics"> (0.0 KCUMM)</content > Platelet mean 8.0-11.0 <content [facility] volume [Entitic styleCode="[place] volume] in Blood ">Mean Platelet Medical by Automated Volume Center count </content>10.8 FL<content styleCode="Ital ics"> (8.0-11.0 FL)</content> Erythrocyte mean 32.0-37. <content [facility] corpuscular 0 styleCode="[place] hemoglobin ">Mean Corpus. Medical concentration Hgb Center [Mass/volume] by Concentration Automated count (MCHC) </content>34.3 G/DL<content styleCode="Ital ics"> (32.0-37.0 G/DL)</content> Platelets 130-400 <content [facility] [#/volume] in styleCode="[place] Blood by ">Platelet Medical Automated count Count Center </content>192 KCUMM<content styleCode="Ital ics"> (130-400 KCUMM)</content > ID Date Data Source GFR(Creatinine).[id number] 01/20/2020 10:22:00 PM EDT [facility] 0-0400 Name Value Range Interpretation Code Description Data Mckenzie rce(s) Supporting Document(s ) UNK > 60 <content [facility] styleCode="Bold"> Medical Cent er EGFR </content>81 GFR<content styleCode="Italic s"> (> 60 GFR)</content> ID Date Data Source [id number] 01/20/2020 10:22:00 PM EDT [facility] Name Value Range Interpretation Description Data Sup porting Code Source(s) Document(s ) Chloride 98-107 <content [facility] [Moles/volume] styleCode="[place] in Serum or d">Chloride Medical Plasma </content>105 Center MEQ/L<content styleCode="Lacho lics"> (98-107 MEQ/L)</conten t> Potassium 3.5-5.3 <content [facility] [Moles/volume] styleCode="[place] in Serum or d">Potassium Medical Plasma </content>3.7 Center MEQ/L<content styleCode="Lacho lics"> (3.5-5.3 MEQ/L)</conten t> Carbon 22-30 <content [facility] dioxide, total styleCode="[place] [Moles/volume] d">Carbon Medical in Serum or Dioxide Center Plasma </content>26 MEQ/L<content styleCode="Lacho lics"> (22-30 MEQ/L)</conten t> Sodium 137-145 <content [facility] [Moles/volume] styleCode="[place] in Serum or d">Sodium Medical Plasma </content>139 Center MEQ/L<content styleCode="Lacho lics"> (137-145 MEQ/L)</conten t> UNK > 60 <content [facility] styleCode="[place] d">EGFR Medical </content>81 Center GFR<content styleCode="Lacho lics"> (> 60 GFR)</content> UNK 9-20 Above high normal <content Saint styleCode="[place] d">BUN Medical </content>21 Center MG/DL H<content styleCode="Lacho lics"> (9-20 MG/DL)</conten t> Glucose 74-106 <content [facility] [Mass/volume] styleCode="[place] in Serum or d">Glucose Medical Plasma </content>101 Center MG/DL<content styleCode="Lacho lics"> (74-106 MG/DL)</conten t> Calcium 8.4-10.2 <content [facility] [Mass/volume] styleCode="[place] in Serum or d">Calcium Medical Plasma </content>9.4 Center MG/DL<content styleCode="Lacho lics"> (8.4-10.2 MG/DL)</conten t> Creatinine 0.5-1.3 <content [facility] [Mass/volume] styleCode="[place] in Serum or d">Creatinine Medical Plasma </content>1.1 Center MG/DL<content styleCode="Lacho lics"> (0.5-1.3 MG/DL)</conten t> ID Date Data Source Urinalysis.[id number] 01/20/2020 10:15:00 PM EDT [facility] 0 Name Value Range Interpretation Description Data Sup porting Code Source(s) Document(s ) Glucose NEGATIVE <content [facility] [Mass/volume] styleCode="[place] in Urine by d">Urine Medical Test strip Glucose Center </content>NEGA TIVE MG/DL<content styleCode="Lacho lics"> (NEGATIVE MG/DL)</conten t> UNK NEGATIVE <content Saint styleCode="[facility] d">Urine Medical Bilirubin Center </content>NEGA TIVE <content styleCode="Lacho lics"> (NEGATIVE )</content> Ketones NEGATIVE <content Saint [Mass/volume] styleCode="[place] in Urine by d">Urine Medical Test strip Ketone Center </content>TRAC E MG/DL<content styleCode="Lacho lics"> (NEGATIVE MG/DL)</conten t> UNK CLEAR <content [facility] styleCode="[place] d">Urine Medical Clarity Center </content>AFIA R <content styleCode="Lacho lics"> (CLEAR )</content> Color of Urine YELLOW <content Saint styleCode="[place] d">Color, Medical Urine Center </content>YELL OW <content styleCode="Lacho lics"> (YELLOW )</content> Specific 1.015-1.02 <content [facility] gravity of 5 styleCode="[place] Urine by Test d">Urine Medical strip Specific Center [place] </content>1.02 5 <content styleCode="Lacho lics"> (1.015-1.025 )</content> pH of Urine by 4.5-8.0 <content [facility] Test strip styleCode="[place] d">Urine pH Medical </content>6.5 Center <content styleCode="Lacho lics"> (4.5-8.0 )</content> Hemoglobin NEGATIVE <content Saint [Presence] in styleCode="[place] Urine by Test d">Urine Blood Medical strip </content>NEGA Center TIVE <content styleCode="Lcaho lics"> (NEGATIVE )</content> Protein NEGATIVE <content Saint [Mass/volume] styleCode="[place] in Urine by d">Urine Medical Test strip Protein Center </content>30 MG/DL<content styleCode="Lacho lics"> (NEGATIVE MG/DL)</conten t> Urobilinogen 0.2-1.0 <content [facility] [Units/volume] styleCode="[place] in Urine by d">Urine Medical Test strip Urobilinogen Center </content>0.2 MG/DL<content styleCode="Lacho lics"> (0.2-1.0 MG/DL)</conten t> UNK NONE SEEN <content Saint styleCode="[facility] d">Epithelial Medical Cell Center </content>2-5 HPF<content styleCode="Lacho lics"> (NONE SEEN HPF)</content> Nitrite NEGATIVE <content Saint [Presence] in styleCode="[place] Urine by Test d">Urine Medical strip Nitrite Center </content>NEGA TIVE <content styleCode="Lacho lics"> (NEGATIVE )</content> Leukocyte NEGATIVE <content [facility] esterase styleCode="[place] [Presence] in d">Urine Medical Urine by Test Leukocyte Center strip </content>NEGA TIVE <content styleCode="Lacho lics"> (NEGATIVE )</content> UNK 0-3 <content Saint styleCode="[place] d">Urine Red [facility] Blood Cell Center </content>0-3 HPF<content styleCode="Lacho lics"> (0-3 HPF)</content> ID Date Data Source [facility]OUTINE[facility].[id number] 01/20/2020 10:15:00 PM EDT [facility] -0400 Name Value Range Interpretation Description Data Sup porting Code Source(s) Document(s ) Cannabinoids <content Saint [Presence] in styleCode="[place] Urine by Screen d">Cannabinoid Medical method >50 ng/mL s Center </content>NEGA TIVE NG/ML (Reference Range: not available)<br/ > ID Date Data Source [id number] 11/17/2019 08:20:00 PM EDT [facility] Name Value Range Interpretation Description Data Sup porting Code Source(s) Document(s ) SARS [facility] coronavirus 2 RNA This lab was ordered by [facility] and reported by [facility]. Procedure Social History Code Duration Value Status Description Data Source(s ) Smoking 01/20/2020 Denies Ever completed Denies Ever Smoked [facility] 08:40:00 PM EDT Smoked Medical C enter Smoking 01/20/2020 Denies Ever completed Denies Ever Smoked [facility] 08:32:00 PM EDT Smoked Medical C enter Smoking 01/20/2020 Denies Ever completed Denies Ever Smoked [facility] 08:28:00 PM EDT Smoked Medical C enter Smoking 12/14/2019 Denies Ever completed Denies Ever Smoked [facility] 09:39:00 AM EDT Smoked Medical C enter Smoking 12/14/2019 Denies Ever completed Denies Ever Smoked [facility] 08:46:00 AM EDT Smoked Medical C enter Vital Signs ID Date Data Source UNK Name Value Range Interpretation Code Description Data Source(s) Body temperature 36.797429 36.308769 [facility] Respiratory rate 17 /min 17 /min [facility] Oxygen saturation 100 % 100 % [facility] blood [facility] by Pulse oximetry Heart rate 88 /min 88 /min [facility] Diastolic blood 92 mm[Hg] 92 mm[Hg] [facility] pressure [facility] Systolic blood 151 mm[Hg] 151 mm[Hg] [facility] Body weight 85.745184 kg 85.904066 kg [facility] Body temperature 37.886540 37.753779 [facility] Respiratory rate 18 /min 18 /min [facility] Oxygen saturation 98 % 98 % [facility] blood [facility] by Pulse oximetry Heart rate 87 /min 87 /min [facility] Body height 180.148407 180.261871 cm [facility] Medical [place] Diastolic blood 106 mm[Hg] 106 mm[Hg] [facility] Center Systolic blood 157 mm[Hg] 157 mm[Hg] [facility] Body mass index 26.1 kg/m2 26.1 kg/m2 [facility] (BMI) [Ratio] Medical Doc ter Body temperature 36.647431 36.717455 Yolanda [facility] Respiratory rate 18 /min 18 /min [facility] Oxygen saturation 98 % 98 % [facility] in Arterial blood [facility] Center by Pulse oximetry Heart rate 64 /min 64 /min [facility] Diastolic blood 96 mm[Hg] 96 mm[Hg] [facility] pressure [facility] Systolic blood 162 mm[Hg] 162 mm[Hg] [facility] Patient Treatment Plan of Care Planned Activity Planned Date Details Description Data Source (s) sertraline 50 mg Tablet [facility] ibuprofen 600 mg Tablet [facility] meclizine 12.5 mg Tablet [facility] 8 HR Acetaminophen 650 MG [facility] Extended Release Oral Tablet [place] 12 HR Dextromethorphan [facility] Hydrobromide 30 MG / [place] Guaifenesin 600 MG Extended Release Oral Tablet [Mucinex DM] Amoxicillin 875 MG / [facility] Clavulanate 125 MG Oral Tablet [place] Ibuprofen 400 MG Oral Tablet [facility]
[2020-02-04] MEDS ORDERED: SODIUM CHLORIDE 1,000 ML IV STA (20:18)
--- NOTE | 2020-02-04 20:43 | PDOC ---
History of Present Illness - General Chief Complaint: Weakness Stated Complaint: WEAKNESS Time Seen by Provider: 02/04/20 19:46 History Source: Patient Exam Limitations: No Limitations - History of Present Illness Initial Comments: 02/04/20 20:19 HISTORY OF PRESENT ILLNESS: 34-year-old male denies medical history presents emergency department for evaluation of bilateral knee pain, weakness, dizziness and "I felt like I was going to blackout." Patient reports he never lost tone or consciousness and the episode happened while at work. Patient reports had a similar episode approximately 3 weeks ago but never had it evaluated. Patient also reports coughing episodes and is bringing up thick white sputum. He denies fevers, chills, chest pain, shortness of breath, headaches, abdominal pain, nausea, vomiting. 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 He reports he had little to drink today. No recent travel or sick contacts. PAST MEDICAL HISTORY: Denies past medical history SURGICAL HISTORY: Denies ALLERGIES: No known drug allergies REVIEW OF SYSTEMS General/Constitutional: Denies fever or chills. Denies weakness, weight change. HEENT: Denies change in vision. Denies ear pain or discharge. Denies sore throat. Cardiovascular: Denies chest pain or shortness of breath. Respiratory: Denies cough, wheezing, or hemoptysis. Gastrointestinal: Denies nausea, vomiting, diarrhea or constipation. Denies rectal bleeding. Genitourinary: Denies dysuria, frequency, or change in urination. Musculoskeletal: Denies joint or muscle swelling or pain. Denies neck or back pain. Skin and breasts: Denies rash or easy bruising. Neurologic: See HPI Psychiatric: Denies depression or anxiety. Endocrine: Denies increased thirst. Denies abnormal weight change. Hematologic/Lymphatic: Denies anemia, easy bleeding, or history of blood clots. Allergic/Immunologic: Denies hives or skin allergy. Denies latex allergy. PHYSICAL EXAM General Appearance: Well-appearing, appropriately dressed. No apparent distress, no intoxication. HEENT: EOMI, PERRLA, normal ENT inspection, normal voice, TMs normal, pharynx normal. No conjunctival pallor. No photophobia, scleral icterus. Neck: Supple. Trachea midline. No tenderness, rigidity, carotid bruit, stridor, lymphadenopathy, or thyromegaly. Respiratory/Chest: Lungs CTAB. No shortness of breath, chest tenderness, respiratory distress, accessory muscle use. No crackles, rales, rhonchi, stridor, wheezing, dullness Cardiovascular: RRR. S1, S2. No JVD, murmur, bradycardia, tachycardia. Vascular Pulses: Dorsalis-Pedis (R): 2+, Dorsalis-Pedis (L): 2+ Gastrointestinal/Abdominal: Normal bowel sounds. Abdomen soft, non-distended. No tenderness or rebound tenderness. No organomegaly, pulsatile mass, guarding, hernia, hepatomegaly, splenomegaly. Lymphatic: No adenopathy, tenderness. Musculoskeletal/Extremities: Normal inspection. FROM of all extremities, normal capillary refill. Pelvis Stable. No CVA tenderness. No tenderness to extremities, pedal edema, swelling, erythema or deformity. Integumentary: Appropriate color, dry, warm. 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 Fully oriented, alert. Appropriate mood/affect. Motor strength 5/5. No appreciable EOM palsy, facial droop or sensory deficit. 02/04/20 22:38 Past History - Medical History Allergies/Adverse Reactions: Allergies Allergy/AdvReac Type Severity Reaction Status Date / Time No Known Allergies Allergy Verified 02/04/20 19:42 Home Medications: Ambulatory Orders Amoxicillin - [Amoxicillin 500mg Capsule -] 500 mg PO BID #20 capsule 11/18/19 Amoxicillin - [Amoxicillin 500mg Capsule -] 500 mg PO BID #14 capsule 12/10/19 Meclizine HCl 12.5 mg PO BID 7 Days #15 tablet 01/14/20 Meclizine HCl 12.5 mg PO BID 7 Days #15 tablet 01/15/20 COPD: No - Psycho-Social/Smoking History Smoking History: Never smoked Have you smoked in the past 12 months: No - Substance Abuse Hx (Audit-C & DAST Scrn) How often the patient has a drink containing alcohol: Never Score: In Men: 4 or > Positive; In Women: 3 or > Positive: 0 Screen Result (Pos requires Nsg. Audit-10AR): Negative *Physical Exam - Vital Signs Last Vital Signs Temp Pulse Resp BP Pulse Ox 98 F 68 18 125/77 99 02/04/20 19:37 02/04/20 19:37 02/04/20 19:37 02/04/20 19:37 02/04/20 19:37 ED Treatment Course - LABORATORY CBC & Chemistry Diagram: 02/04/20 20:30 02/04/20 20:30 - RADIOLOGY Radiology Studies Ordered: Category Date Time Status CHEST PA & LAT [RAD] Stat Radiology 02/04/20 20:18 Ordered Medical Decision Making - Medical Decision Making 02/04/20 20:43 A/P: 34-year-old male with presyncopal episode earlier today Labs including cardiac profile Chest x-ray EKG Normal saline 1 L IV bolus Reassess 02/04/20 21:33 Laboratory Tests 02/04/20 02/04/20 20:30 20:30 WBC 6.2 RBC 4.90 Hgb 15.2 Hct 44.1 MCV 90.1 MCH 31.1 MCHC 34.5 RDW 13.0 Plt Count 184 MPV 9.1 Absolute Neuts (auto) 3.1 Neutrophils % 49.8 Lymphocytes % 38.7 Monocytes % 6.8 Eosinophils % 4.2 Basophils % 0.5 Nucleated RBC % 0 Sodium 142 Potassium 3.7 Chloride 109 H Carbon Dioxide 26 Anion Gap 8 BUN 23.7 H Creatinine 0.9 Est GFR (CKD-EPI)AfAm 128.70 Est GFR (CKD-EPI)NonAf 111.04 Random Glucose 115 H Calcium 8.7 Total Bilirubin 0.3 AST 31 ALT 36 Alkaline Phosphatase 96 Creatine Kinase 528 H Creatine Kinase Index Pending CK-MB (CK-2) Pending Troponin I < 0.02 Total Protein 7.6 Albumin 3.9 EKG is read by me: Sinus rhythm with rate of 59. Normal intervals present. No ischemic changes noted. Chest x-ray is read by me: Angle sharp. Cardiac silhouette is within normal limits. Lung white are clear without any infiltrate or consolidations noted. No significant change from study performed 11/17/2019. Patient with elevated CK but normal troponin this is likely related to physical exertion at work. Will hydrate patient and reassess. 02/04/20 22:28 Laboratory Tests 02/04/20 20:30 Creatine Kinase Index 0.7 CK-MB (CK-2) 4.2 H Patient reports he feels better now. His CK-MB is slightly elevated given the initial troponin being negative I feel it is safe to discharge the patient home as symptoms started more than 4 hours prior to arrival. I discussed the physical exam findings, ancillary test results and final diagnoses with the patient. I answered all of the patient's questions. The patient was satisfied with the care received and felt comfortable with the discharge plan and treatment plan. The patient will call their primary care physician within 24 hours to arrange follow-up and will return to the Emergency Department with any new, persistent or worsening symptoms. Portions of this note have been documented using voice recognition software. As a result, errors may occur in the service operations manager process. Effort has been made to correct all grammatical and service operations manager error, but some may have been missed which may produce sporadic inaccurate service operations manager or nonsensical phrases. Discharge - Discharge Information Problems reviewed: Yes Clinical Impression/Diagnosis: Rhabdomyolysis Qualifiers: Rhabdomyolysis type: non-traumatic Qualified Code(s): M62.82 - Rhabdomyolysis Condition: Fair Disposition: HOME - Admission No - Follow up/Referral - Patient Discharge Instructions Additional Instructions: It is important that you drink plenty of fluids like water or Gatorade. You need to rest. Do not work for the next 3 days. It is important that you follow-up with your primary doctor for reevaluation. Return to the emergency department for any new or worsening symptoms. Thank you very much for choosing us to provide your emergent healthcare needs. Es importante que jocelyne muchos lquidos mihaela agua o Gatorade. Necesitas descansar. No trabaje harley los prximos 3 burger. Es importante que realice un seguimiento con bush mdico de cabecera para scar reevaluacin. Regrese al departamento de emergencias por cualquier sntoma nuevo o que empeore. Muchas sarai por elegirnos para satisfacer radha necesidades de atencin mdica emergentes. - Post Discharge Activity Work/Back to School Note: Back to Work
[2020-02-04 20:48] LABS: BASO % 0.5 % (0-2.0); EOS % 4.2 % (0-4.5); HEMATOCRIT 44.1 % (35.4-49); HEMOGLOBIN 15.2 GM/dL (11.7-16.9); LYMPH % 38.7 % (8-40); MCH 31.1 pg (25.7-33.7); MCHC 34.5 g/dl (32.0-35.9); MEAN CELL VOLUME 90.1 fl (80-96); MEAN PLT VOLUME 9.1 fl (7.5-11.1); MONO % 6.8 % (3.8-10.2); NEUT % 49.8 % (42.8-82.8); PLATELET COUNT 184 K/MM3 (134-434); WHITE BLOOD COUNT 6.2 K/mm3 (4.0-10.0)
[2020-02-04 21:32] LABS: ALBUMIN 3.9 g/dl (3.4-5.0); ALK PHOS 96 U/L (45-117); ANION GAP 8 MMOL/L (8-16); BILIRUBIN,TOTAL 0.3 mg/dL (0.2-1); BLOOD UREA NITROGEN 23.7 mg/dL (7-18); CALCIUM 8.7 mg/dL (8.5-10.1); CHLORIDE 109 mmol/L (98-107); CO2 26 mmol/L (21-32); CREATININE 0.9 mg/dL (0.55-1.3); GLUCOSE,RANDOM 115 mg/dL (74-106); POTASSIUM 3.7 mmol/L (3.5-5.1); SGOT/AST 31 U/L (15-37); SGPT/ALT 36 U/L (13-61); SODIUM 142 mmol/L (136-145); TOT PROT 7.6 g/dl (6.4-8.2)
--- NOTE | 2020-02-05 16:11 | EKG ---
Test Reason : Blood Pressure : / mmHG Vent. Rate : 059 BPM Atrial Rate : 059 BPM P-R Int : 158 ms QRS Dur : 108 ms QT Int : 426 ms P-R-T Axes : 042 -07 023 degrees QTc Int : 421 ms SINUS BRADYCARDIA OTHERWISE NORMAL ECG WHEN COMPARED WITH ECG OF 14-JAN-2020 22:32, NO SIGNIFICANT CHANGE WAS FOUND Confirmed by MD Clifford Daniel ([id number]) on 02/05/2020 4:11:14 PM Referred By: Confirmed By:Justin Clifford MD
== END 2020-02-04 23:06 | disposition home or self-care (01) ==
LOC: JER 19:35
PROC: 3E0337Z Introduction of Electrolytic and Water Balance Substance into Peripheral Vein, Percutaneous Approach (ICD-10-PCS; principal; 2020-02-04)
DX: M62.82 Rhabdomyolysis (principal)
CPT/HCPCS: 36415; 71046-TC-FY; 80053; 82550; 82553; 84484; 85025; 93005; 93010; 99285-25

== ENCOUNTER 2021-10-31 19:38 | Emergency (ER) | payer OTHER ==
[2021-10-31 19:54] VITALS: BMI 28.3
[2021-10-31] MEDS ORDERED: ACETAMINOPHEN 1000 MG/100 ML BAG IVPB ONE (22:15)
[2021-10-31] MEDS ORDERED: ACETAMINOPHEN INJECTION 100 ML IVPB ONE (22:26)
[2021-10-31 22:29] LABS: BASO % 0.6 % (0-2.0); EOS % 5.1 % (0-4.5); HEMATOCRIT 41.8 % (35.4-49); HEMOGLOBIN 14.7 GM/dL (11.7-16.9); LYMPH % 38.7 % (8-40); MCH 31.5 pg (25.7-33.7); MCHC 35.1 g/dl (32.0-35.9); MEAN CELL VOLUME 89.5 fl (80-96); MONO % 7.9 % (3.8-10.2); NEUT % 47.7 % (42.8-82.8); PLATELET COUNT 179 10^3/uL (134-434); RBC 4.67 M/mm3 (4.00-5.60); RDW 12.9 % (11.9-15.9); WHITE BLOOD COUNT 5.6 K/mm3 (4.0-10.0)
[2021-10-31 22:49] LABS: INR 1.14 (0.83-1.09); PROTHROMBIN TIME (PATIENT) 13.1 SEC (9.7-13.0)
[2021-10-31 22:52] LABS: ACTIVATED PTT 35.8 SECONDS (25.2-36.5)
[2021-10-31 22:53] LABS: CALCIUM 8.7 mg/dL (8.5-10.1)
[2021-10-31 22:54] LABS: ALBUMIN 4.1 g/dl (3.4-5.0); BLOOD UREA NITROGEN 22.8 mg/dL (7-18)
[2021-10-31 22:57] LABS: CREATININE 0.9 mg/dL (0.55-1.3)
[2021-10-31 22:59] LABS: BILIRUBIN,TOTAL 0.5 mg/dL (0.2-1); TOT PROT 7.1 g/dl (6.4-8.2)
[2021-11-01 00:36] VITALS: BP 121/78; PULSE 72; TEMP 98.1
== END 2021-11-01 00:36 | disposition home or self-care (01) ==
LOC: JER 19:38
PROC: 3E033GC Introduction of Other Therapeutic Substance into Peripheral Vein, Percutaneous Approach (ICD-10-PCS; principal; 2021-10-31)
DX: R10.9 Unspecified abdominal pain (principal)
CPT/HCPCS: 36415; 76705-TC; 80053; 83605; 85025; 85610; 85730; 99284-25

== ENCOUNTER 2022-01-25 19:54 | Emergency (ER) | payer OTHER ==
[2022-01-25 20:02] VITALS: BP 123/68; PULSE 67; RESP 18; TEMP 98.1; BMI 25.8
[2022-01-25] MEDS ORDERED: KETOROLAC TROMETHAMINE 15 MG/ML VIAL IVPUSH ONE (22:02)
[2022-01-25] MEDS ORDERED: LIDOCAINE 5% TOPICAL PATCH TP ONE (22:02)
[2022-01-25] MEDS ORDERED: KETOROLAC TROMETHAMINE 15 MG/ML VIAL ONE (22:12)
[2022-01-25] MEDS ORDERED: LIDOCAINE 5% TOPICAL PATCH ONE (22:12)
[2022-01-25 22:51] LABS: BASO % 0.5 % (0-2.0); EOS % 5.1 % (0-4.5); HEMATOCRIT 44.1 % (35.4-49); HEMOGLOBIN 15.8 GM/dL (11.7-16.9); LYMPH % 36.2 % (8-40); MCH 31.6 pg (25.7-33.7); MCHC 35.8 g/dl (32.0-35.9); MEAN CELL VOLUME 88.2 fl (80-96); MEAN PLT VOLUME 8.3 fl (7.5-11.1); MONO % 7.6 % (3.8-10.2); NEUT % 50.6 % (42.8-82.8); PLATELET COUNT 207 10^3/uL (134-434); RDW 12.9 % (11.9-15.9); WHITE BLOOD COUNT 7.1 K/mm3 (4.0-10.0)
[2022-01-25 23:12] LABS: ALBUMIN 3.9 g/dl (3.4-5.0); BLOOD UREA NITROGEN 20.9 mg/dL (7-18); CALCIUM 8.6 mg/dL (8.5-10.1)
[2022-01-25 23:15] LABS: CREATININE 0.9 mg/dL (0.55-1.3)
[2022-01-25 23:17] LABS: BILIRUBIN,TOTAL 0.4 mg/dL (0.2-1); TOT PROT 7.4 g/dl (6.4-8.2)
[2022-01-26] MEDS ORDERED: LIDOCAINE PATCH REMOVAL MC SCH (10:00)
== END 2022-01-26 01:52 | disposition home or self-care (01) ==
LOC: JER 19:54
PROC: 3E0333Z Introduction of Anti-inflammatory into Peripheral Vein, Percutaneous Approach (ICD-10-PCS; principal; 2022-01-25)
DX: R07.9 Chest pain, unspecified (principal); R51.9 Headache, unspecified
CPT/HCPCS: 36415; 70450-TC; 71046-TC-FY; 80053; 82550; 82553; 84484; 85025; 93005; 93010; 99285-25

== ENCOUNTER 2022-04-22 17:22 | Emergency (ER) | payer OTHER ==
[2022-04-22 18:36] VITALS: BP 110/78; PULSE 75; RESP 18; TEMP 98.4; BMI 30.7
[2022-04-22] MEDS ORDERED: SODIUM CHLORIDE 1,000 ML IV STA (20:54)
[2022-04-22] MEDS ORDERED: MAG HYDROX/AL HYDROX/SIMETH 30 ML UNIT-DOSE CUP PO ONE (20:56)
== END 2022-04-22 22:00 | disposition left against medical advice (07) ==
LOC: JERFT 17:22 → JER 17:22 → JERFT 22:00
PROC: 3E0337Z Introduction of Electrolytic and Water Balance Substance into Peripheral Vein, Percutaneous Approach (ICD-10-PCS; principal; 2022-04-22)
DX: R10.11 Right upper quadrant pain (principal); R10.31 Right lower quadrant pain
CPT/HCPCS: 96360; 99284-25

== ENCOUNTER 2022-04-25 18:41 | Emergency (ER) | payer OTHER ==
[2022-04-25 18:47] VITALS: BP 138/74; PULSE 52; RESP 18; TEMP 98; BMI 30.6
[2022-04-25] MEDS ORDERED: FAMOTIDINE 20 MG/50 ML IVPB 20 MG/50 ML MG IVPB ONE ×2 (20:48→21:29)
[2022-04-25] MEDS ORDERED: LIDOCAINE VISCOUS 2% ORAL/TOP 15 ML UNIT-DOSE CUP MM ONE (20:48)
[2022-04-25] MEDS ORDERED: MAG HYDROX/AL HYDROX/SIMETH 30 ML UNIT-DOSE CUP PO ONE (20:48)
[2022-04-25] MEDS ORDERED: MAG HYDROX/AL HYDROX/SIMETH 30 ML UNIT-DOSE CUP ONE (21:29)
[2022-04-25] MEDS ORDERED: LIDOCAINE VISCOUS 2% ORAL/TOP 15 ML UNIT-DOSE CUP ONE (21:29)
[2022-04-25 22:03] LABS: HEMATOCRIT 44.9 % (35.4-49); HEMOGLOBIN 15.3 GM/dL (11.7-16.9); MCH 30.3 pg (25.7-33.7); MEAN CELL VOLUME 89.2 fl (80-96); MEAN PLT VOLUME 8.7 fl (7.5-11.1); PLATELET COUNT 222 10^3/uL (134-434); RBC 5.04 M/mm3 (4.00-5.60); RDW 13.2 % (11.9-15.9)
[2022-04-25 22:25] LABS: BLOOD UREA NITROGEN 21.3 mg/dL (7-18); CALCIUM 8.9 mg/dL (8.5-10.1)
[2022-04-25 22:26] LABS: ALBUMIN 3.9 g/dl (3.4-5.0)
[2022-04-25 22:28] LABS: CREATININE 0.8 mg/dL (0.55-1.3)
[2022-04-25 22:30] LABS: BILIRUBIN,TOTAL 0.7 mg/dL (0.2-1); TOT PROT 7.5 g/dl (6.4-8.2)
== END 2022-04-25 23:24 | disposition home or self-care (01) ==
LOC: JER 18:41
PROC: 3E033GC Introduction of Other Therapeutic Substance into Peripheral Vein, Percutaneous Approach (ICD-10-PCS; principal; 2022-04-25)
DX: R10.13 Epigastric pain (principal)
CPT/HCPCS: 36415; 80053; 83690; 85027; 99284-25

== ENCOUNTER 2022-05-27 18:34 | Emergency (ER) | payer OTHER ==
[2022-05-27 18:59] VITALS: BP 109/70; PULSE 67; RESP 18; TEMP 99.3; BMI 28.0
[2022-05-27] MEDS ORDERED: SODIUM CHLORIDE 1,000 ML IV STA (20:58)
[2022-05-27] MEDS ORDERED: FAMOTIDINE 20 MG/50 ML IVPB 20 MG/50 ML MG IVPB ONE ×2 (20:58→21:11)
[2022-05-27] MEDS ORDERED: MAG HYDROX/AL HYDROX/SIMETH -MYLANTA- ORAL SUSPENSION PO ONE (20:58)
[2022-05-27] MEDS ORDERED: MAG HYDROX/AL HYDROX/SIMETH 30 ML UNIT-DOSE CUP ONE (21:11)
[2022-05-27 21:29] LABS: BASO % 0.4 % (0-2.0); EOS % 3.1 % (0-4.5); HEMATOCRIT 47.3 % (35.4-49); HEMOGLOBIN 16.2 GM/dL (11.7-16.9); LYMPH % 38.7 % (8-40); MCH 30.6 pg (25.7-33.7); MCHC 34.3 g/dl (32.0-35.9); MEAN CELL VOLUME 89.2 fl (80-96); MEAN PLT VOLUME 8.2 fl (7.5-11.1); MONO % 5.1 % (3.8-10.2); NEUT % 52.7 % (42.8-82.8); PLATELET COUNT 226 10^3/uL (134-434); RBC 5.31 M/mm3 (4.00-5.60); WHITE BLOOD COUNT 6.7 K/mm3 (4.0-10.0)
[2022-05-27 21:57] LABS: PH,URINE 5.5 (5.0-8.0); URINE APPEARANCE CLEAR; URINE BILIRUBIN NEGATIVE (NEGATIVE); URINE COLOR YELLOW; URINE GLUCOSE (UA) NEGATIVE (NEGATIVE); URINE KETONE NEGATIVE (NEGATIVE); URINE LEUK ESTERASE NEGATIVE (NEGATIVE); URINE NITRITE NEGATIVE (NEGATIVE); URINE PROTEIN NEGATIVE (NEGATIVE); URINE UROBILINOGEN 0.2 mg/dL (0.2-1.0)
[2022-05-27 23:01] LABS: BLOOD UREA NITROGEN 19.1 mg/dL (7-18); CALCIUM 8.9 mg/dL (8.5-10.1)
[2022-05-27 23:04] LABS: CREATININE 0.9 mg/dL (0.55-1.3)
[2022-05-27 23:06] LABS: BILIRUBIN,TOTAL 0.4 mg/dL (0.2-1); TOT PROT 7.7 g/dl (6.4-8.2)
[2022-05-27] MEDS ORDERED: LIDOCAINE VISCOUS 2% ORAL/TOP 15 ML UNIT-DOSE CUP MM ONE (23:14)
[2022-05-27] MEDS ORDERED: LIDOCAINE VISCOUS 2% ORAL/TOP 15 ML UNIT-DOSE CUP ONE (23:16)
== END 2022-05-27 23:32 | disposition home or self-care (01) ==
LOC: JER 18:34
PROC: 3E033GC Introduction of Other Therapeutic Substance into Peripheral Vein, Percutaneous Approach (ICD-10-PCS; principal; 2022-05-27)
DX: K29.70 Gastritis, unspecified, without bleeding (principal)
CPT/HCPCS: 36415; 80053; 81003; 83690; 85025; 87086; 99284-25

== ENCOUNTER 2022-07-03 14:25 | Emergency (ER) | payer OTHER ==
[2022-07-03 14:34] VITALS: PULSE 65; BMI 29.2
[2022-07-03] MEDS ORDERED: ACETAMINOPHEN 1000 MG/100 ML BAG IVPB ONE (15:16)
[2022-07-03] MEDS ORDERED: MAG HYDROX/AL HYDROX/SIMETH 30 ML UNIT-DOSE CUP PO ONE (15:16)
[2022-07-03] MEDS ORDERED: FAMOTIDINE 20 MG/50 ML IVPB 20 MG/50 ML MG IVPB ONE ×2 (15:16→15:35)
[2022-07-03] MEDS ORDERED: MAG HYDROX/AL HYDROX/SIMETH 30 ML UNIT-DOSE CUP ONE (15:34)
[2022-07-03] MEDS ORDERED: ACETAMINOPHEN INJECTION 100 ML IVPB ONE (15:34)
[2022-07-03 16:30] VITALS: BP 103/55; RESP 20; TEMP 98.4
[2022-07-03 17:08] LABS: HEMATOCRIT 41.1 % (35.4-49); HEMOGLOBIN 14.5 GM/dL (11.7-16.9); MCH 31.4 pg (25.7-33.7); MCHC 35.3 g/dl (32.0-35.9); MEAN CELL VOLUME 88.7 fl (80-96); MEAN PLT VOLUME 8.6 fl (7.5-11.1); PLATELET COUNT 203 10^3/uL (134-434); RBC 4.63 M/mm3 (4.00-5.60); RDW 13.2 % (11.9-15.9); WHITE BLOOD COUNT 5.9 K/mm3 (4.0-10.0)
[2022-07-03 17:21] LABS: URINE APPEARANCE CLEAR; URINE BILIRUBIN NEGATIVE (NEGATIVE); URINE COLOR YELLOW; URINE GLUCOSE (UA) NEGATIVE (NEGATIVE); URINE KETONE NEGATIVE (NEGATIVE); URINE LEUK ESTERASE NEGATIVE (NEGATIVE); URINE NITRITE NEGATIVE (NEGATIVE); URINE PROTEIN NEGATIVE (NEGATIVE); URINE UROBILINOGEN 0.2 mg/dL (0.2-1.0)
[2022-07-03 17:33] LABS: ALBUMIN 3.8 g/dl (3.4-5.0); CALCIUM 8.6 mg/dL (8.5-10.1)
[2022-07-03 17:34] LABS: BLOOD UREA NITROGEN 20.5 mg/dL (7-18)
[2022-07-03 17:36] LABS: CREATININE 0.9 mg/dL (0.55-1.3)
[2022-07-03 17:38] LABS: BILIRUBIN,TOTAL 0.4 mg/dL (0.2-1); TOT PROT 7.4 g/dl (6.4-8.2)
[2022-07-03 17:51] LABS: ANISOCYTOSIS 1+; MACROCYTOSIS 0; OVALOCYTE 0; TEAR DROP CELLS 1+
== END 2022-07-03 18:18 | disposition home or self-care (01) ==
LOC: JER 14:25
PROC: 3E033GC Introduction of Other Therapeutic Substance into Peripheral Vein, Percutaneous Approach (ICD-10-PCS; principal; 2022-07-03)
DX: R10.11 Right upper quadrant pain (principal)
CPT/HCPCS: 36415; 80053; 81003; 83690; 85025; 87086; 87186; 99284-25

== ENCOUNTER 2022-09-14 18:47 | Emergency (ER) | payer OTHER ==
[2022-09-14 18:52] VITALS: BP 128/72; PULSE 57; RESP 19; TEMP 98.1; BMI 31.6
[2022-09-14] MEDS ORDERED: ACETAMINOPHEN 500 MG TABLET (FP) PO ONE (19:19)
[2022-09-14] MEDS ORDERED: ACETAMINOPHEN 500 MG TABLET (FP) ONE (19:26)
[2022-09-14 20:32] LABS: BASO % 0.4 % (0-2.0); EOS % 3.4 % (0-4.5); HEMATOCRIT 42.5 % (35.4-49); HEMOGLOBIN 14.9 GM/dL (11.7-16.9); LYMPH % 35.6 % (8-40); MEAN CELL VOLUME 88.4 fl (80-96); MEAN PLT VOLUME 8.9 fl (7.5-11.1); MONO % 5.6 % (3.8-10.2); PLATELET COUNT 187 10^3/uL (134-434); RBC 4.81 M/mm3 (4.00-5.60); RDW 13.4 % (11.9-15.9); WHITE BLOOD COUNT 6.3 K/mm3 (4.0-10.0)
[2022-09-14 20:43] LABS: POTASSIUM 3.6 mmol/L (3.5-5.1)
[2022-09-14 20:44] LABS: CALCIUM 9.1 mg/dL (8.5-10.1)
[2022-09-14 20:45] LABS: BLOOD UREA NITROGEN 29.5 mg/dL (7-18)
[2022-09-14 20:48] LABS: CREATININE 0.9 mg/dL (0.55-1.3)
== END 2022-09-14 23:23 | disposition home or self-care (01) ==
LOC: JER 18:47 → JERFT 18:47
DX: R10.33 Periumbilical pain (principal); X50.0XXA Overexertion from strenuous movement or load, initial encounter
CPT/HCPCS: 36415; 74177-TC; 80048; 85025; 99285-25; Q9967

== ENCOUNTER 2022-12-24 19:27 | Emergency (ER) | payer OTHER ==
[2022-12-24 19:31] VITALS: BP 150/77; PULSE 56; RESP 18; TEMP 98.1; BMI 31.6
[2022-12-24] MEDS ORDERED: KETOROLAC TROMETHAMINE 15 MG/ML VIAL IVPUSH ONE (21:11)
[2022-12-24] MEDS ORDERED: KETOROLAC TROMETHAMINE 15 MG/ML VIAL ONE (21:31)
[2022-12-24 21:58] LABS: BASO % 0.4 % (0-2.0); EOS % 3.8 % (0-4.5); HEMATOCRIT 43.1 % (35.4-49); HEMOGLOBIN 14.3 GM/dL (11.7-16.9); MCH 29.8 pg (25.7-33.7); MCHC 33.1 g/dl (32.0-35.9); MEAN CELL VOLUME 90.2 fl (80-96); MEAN PLT VOLUME 8.8 fl (7.5-11.1); NEUT % 41.8 % (42.8-82.8); PLATELET COUNT 200 10^3/uL (134-434); RBC 4.78 M/mm3 (4.00-5.60); RDW 13.1 % (11.9-15.9)
[2022-12-24 21:59] LABS: URINE APPEARANCE CLEAR; URINE BILIRUBIN NEGATIVE (NEGATIVE); URINE COLOR YELLOW; URINE GLUCOSE (UA) NEGATIVE (NEGATIVE); URINE KETONE TRACE (NEGATIVE); URINE LEUK ESTERASE NEGATIVE (NEGATIVE); URINE NITRITE NEGATIVE (NEGATIVE); URINE PROTEIN NEGATIVE (NEGATIVE); URINE UROBILINOGEN 0.2 mg/dL (0.2-1.0)
[2022-12-24 22:20] LABS: POTASSIUM 3.7 mmol/L (3.5-5.1)
[2022-12-24 22:22] LABS: ALBUMIN 3.4 g/dl (3.4-5.0); CALCIUM 8.2 mg/dL (8.5-10.1)
[2022-12-24 22:23] LABS: BLOOD UREA NITROGEN 22.5 mg/dL (7-18); MAGNESIUM 2.3 mg/dL (1.8-2.4)
[2022-12-24 22:25] LABS: CREATININE 0.8 mg/dL (0.55-1.3)
[2022-12-24 22:27] LABS: TOT PROT 6.8 g/dl (6.4-8.2)
[2022-12-24 22:30] LABS: BILIRUBIN,TOTAL 0.3 mg/dL (0.2-1)
== END 2022-12-25 01:02 | disposition home or self-care (01) ==
LOC: JER 19:27
PROC: 3E0333Z Introduction of Anti-inflammatory into Peripheral Vein, Percutaneous Approach (ICD-10-PCS; principal; 2022-12-24)
DX: R10.31 Right lower quadrant pain (principal); R10.32 Left lower quadrant pain; R30.0 Dysuria
CPT/HCPCS: 36415; 74176-TC; 80053; 81003; 83690; 83735; 85025; 87086; 99284-25

== ENCOUNTER 2023-02-11 18:09 | Emergency (ER) | payer OTHER ==
[2023-02-11 18:26] VITALS: BP 110/67; PULSE 58; RESP 18; TEMP 98.2; BMI 29.9
== END 2023-02-11 22:11 | disposition left against medical advice (07) ==
LOC: JER 18:09
DX: R07.81 Pleurodynia (principal); R05.9 Cough, unspecified
CPT/HCPCS: 82962; 93005; 93010; 99283-25

== ENCOUNTER 2023-06-30 19:27 | Emergency (ER) | payer OTHER ==
[2023-06-30 19:38] VITALS: BP 119/64; PULSE 62; RESP 16; TEMP 97.7; BMI 25.8
[2023-06-30 20:36] LABS: BASO % 0.5 % (0-2.0); EOS % 2.4 % (0-4.5); HEMATOCRIT 44.4 % (35.4-49); HEMOGLOBIN 15.5 GM/dL (11.7-16.9); MCH 31.4 pg (25.7-33.7); MEAN CELL VOLUME 89.8 fl (80-96); MEAN PLT VOLUME 8.3 fl (7.5-11.1); MONO % 5.7 % (3.8-10.2); NEUT % 57.4 % (42.8-82.8); PLATELET COUNT 202 10^3/uL (134-434); RBC 4.94 M/mm3 (4.00-5.60); RDW 13.3 % (11.9-15.9); WHITE BLOOD COUNT 7.1 K/mm3 (4.0-10.0)
[2023-06-30 20:52] LABS: INR 1.23 (0.83-1.09); PROTHROMBIN TIME (PATIENT) 14.2 SEC (9.7-13.0)
[2023-06-30 20:55] LABS: ACTIVATED PTT 35.4 SECONDS (25.2-36.5)
[2023-06-30 20:58] LABS: POTASSIUM 4.1 mmol/L (3.5-5.1)
[2023-06-30] MEDS ORDERED: MAG HYDROX/AL HYDROX/SIMETH 30 ML UNIT-DOSE CUP ONE (20:59)
[2023-06-30] MEDS ORDERED: FAMOTIDINE 20 MG/50 ML IVPB 20 MG/50 ML MG IVPB ONE (20:59)
[2023-06-30 21:09] LABS: CALCIUM 8.9 mg/dL (8.5-10.1)
[2023-06-30 21:10] LABS: MAGNESIUM 2.6 mg/dL (1.8-2.4)
[2023-06-30] MEDS: MAG HYDROX/AL HYDROX/SIMETH 30 ML UNIT-DOSE CUP PO ONE (21:10)
[2023-06-30] MEDS: FAMOTIDINE 20 MG/50 ML IVPB 20 MG/50 ML MG IVPB ONE (21:10)
[2023-06-30 21:12] LABS: CREATININE 0.9 mg/dL (0.55-1.3)
[2023-06-30 21:14] LABS: BILIRUBIN,TOTAL 0.7 mg/dL (0.2-1); TOT PROT 7.8 g/dl (6.4-8.2)
[2023-06-30] MEDS ORDERED: KETOROLAC TROMETHAMINE 15 MG/ML VIAL ONE (22:48)
[2023-06-30] MEDS: KETOROLAC TROMETHAMINE 15 MG/ML VIAL IVPUSH ONE (23:04)
== END 2023-06-30 23:17 | disposition home or self-care (01) ==
LOC: JER 19:27
PROC: 3E033GC Introduction of Other Therapeutic Substance into Peripheral Vein, Percutaneous Approach (ICD-10-PCS; principal; 2023-06-30)
PROC: 3E0333Z Introduction of Anti-inflammatory into Peripheral Vein, Percutaneous Approach (ICD-10-PCS; 2023-06-30)
DX: R07.89 Other chest pain (principal); R07.81 Pleurodynia; R11.0 Nausea; R10.11 Right upper quadrant pain
CPT/HCPCS: 36415; 71046-TC-FY; 76705-TC; 80053; 83690; 83735; 85025; 85379; 85610; 85730; 86850; 86900; 86901; 93005; 93010; 96365; 99285-25

== ENCOUNTER 2023-09-01 17:45 | Emergency (ER) | payer OTHER ==
[2023-09-01 18:20] VITALS: PULSE 57; TEMP 98.5; BMI 28.1
[2023-09-01 19:12] LABS: BASO % 0.5 % (0-2.0); EOS % 3.7 % (0-4.5); HEMATOCRIT 41.6 % (35.4-49); HEMOGLOBIN 14.3 GM/dL (11.7-16.9); MCH 31.3 pg (25.7-33.7); MCHC 34.3 g/dl (32.0-35.9); MEAN CELL VOLUME 91.4 fl (80-96); MEAN PLT VOLUME 9.1 fl (7.5-11.1); NEUT % 58.8 % (42.8-82.8); PLATELET COUNT 180 10^3/uL (134-434); RBC 4.55 M/mm3 (4.00-5.60); RDW 13.4 % (11.9-15.9); WHITE BLOOD COUNT 6.7 K/mm3 (4.0-10.0)
[2023-09-01] MEDS ORDERED: ACETAMINOPHEN INJECTION 100 ML IVPB ONE (19:12)
[2023-09-01 19:13] LABS: PH,URINE 5.5 (5.0-8.0); URINE APPEARANCE CLEAR; URINE BILIRUBIN NEGATIVE (NEGATIVE); URINE COLOR YELLOW; URINE GLUCOSE (UA) NEGATIVE (NEGATIVE); URINE KETONE NEGATIVE (NEGATIVE); URINE LEUK ESTERASE NEGATIVE (NEGATIVE); URINE NITRITE NEGATIVE (NEGATIVE); URINE PROTEIN NEGATIVE (NEGATIVE); URINE UROBILINOGEN 0.2 mg/dL (0.2-1.0)
[2023-09-01] MEDS: LACTATED RINGERS SOLUTION 1000 ML INFUS.BAG IV ONE (19:17)
[2023-09-01] MEDS: ACETAMINOPHEN 1000 MG/100 ML BAG IVPB ONE (19:18)
[2023-09-01 19:26] LABS: INR 1.09 (0.83-1.09); PROTHROMBIN TIME (PATIENT) 12.6 SEC (9.7-13.0)
[2023-09-01 19:27] LABS: ACTIVATED PTT 32.1 SECONDS (25.2-36.5)
[2023-09-01 19:31] LABS: POTASSIUM 3.7 mmol/L (3.5-5.1)
[2023-09-01 19:34] LABS: ALBUMIN 3.7 g/dl (3.4-5.0); BLOOD UREA NITROGEN 23.7 mg/dL (7-18); CALCIUM 8.7 mg/dL (8.5-10.1); MAGNESIUM 2.2 mg/dL (1.8-2.4)
[2023-09-01 19:37] LABS: CREATININE 0.9 mg/dL (0.55-1.3)
[2023-09-01 19:39] LABS: BILIRUBIN,TOTAL 0.3 mg/dL (0.2-1)
[2023-09-01 22:22] VITALS: BP 120/63; RESP 18
[2023-09-02] MEDS ORDERED: KETOROLAC TROMETHAMINE 30 MG/1 ML VIAL ONE (00:15)
[2023-09-02] MEDS: KETOROLAC TROMETHAMINE 30 MG/1 ML VIAL IVPUSH ONE (00:21)
== END 2023-09-02 00:41 | disposition home or self-care (01) ==
LOC: JER 17:45
PROC: 3E033NZ Introduction of Analgesics, Hypnotics, Sedatives into Peripheral Vein, Percutaneous Approach (ICD-10-PCS; principal; 2023-09-01)
PROC: 3E0333Z Introduction of Anti-inflammatory into Peripheral Vein, Percutaneous Approach (ICD-10-PCS; 2023-09-01)
DX: S39.011A Strain of muscle, fascia and tendon of abdomen, initial encounter (principal); R10.31 Right lower quadrant pain; R11.0 Nausea; X58.XXXA Exposure to other specified factors, initial encounter
CPT/HCPCS: 36415; 74177-TC; 80053; 81003; 83690; 83735; 85025; 85610; 85730; 86850; 86900; 86901; 93005; 93010; 99285-25; J0131; Q9967

== ENCOUNTER 2023-12-19 17:03 | Emergency (ER) | payer OTHER ==
[2023-12-19 17:22] VITALS: BP 105/68; PULSE 51; RESP 19; TEMP 97.8; BMI 26.6
[2023-12-19] MEDS ORDERED: FAMOTIDINE 20 MG/50 ML IVPB 20 MG/50 ML MG IVPB ONE (19:37)
[2023-12-19] MEDS ORDERED: ACETAMINOPHEN INJECTION 100 ML IVPB ONE (19:37)
[2023-12-19] MEDS ORDERED: ONDANSETRON 4 MG/2 ML VIAL ONE (19:37)
[2023-12-19] MEDS: FAMOTIDINE 20 MG/50 ML IVPB 20 MG/50 ML MG IVPB ONE (19:42)
[2023-12-19] MEDS: ONDANSETRON 4 MG/2 ML VIAL IVPUSH ONE (19:42)
[2023-12-19] MEDS: ACETAMINOPHEN 1000 MG/100 ML BAG IVPB ONE (19:42)
[2023-12-19 19:48] LABS: BASO % 0.4 % (0-2.0); EOS % 3.1 % (0-4.5); HEMATOCRIT 41.7 % (35.4-49); HEMOGLOBIN 14.2 GM/dL (11.7-16.9); LYMPH % 38.9 % (8-40); MCH 31.1 pg (25.7-33.7); MCHC 34.1 g/dl (32.0-35.9); MEAN CELL VOLUME 91.4 fl (80-96); MEAN PLT VOLUME 8.2 fl (7.5-11.1); MONO % 6.9 % (3.8-10.2); NEUT % 50.7 % (42.8-82.8); PLATELET COUNT 197 10^3/uL (134-434); RBC 4.56 M/mm3 (4.00-5.60); RDW 13.2 % (11.9-15.9); WHITE BLOOD COUNT 5.5 K/mm3 (4.0-10.0)
[2023-12-19 19:55] LABS: INR 1.07 (0.83-1.09); PROTHROMBIN TIME (PATIENT) 12.3 SEC (9.7-13.0)
[2023-12-19 19:58] LABS: ACTIVATED PTT 37.4 SECONDS (25.2-36.5)
[2023-12-19 20:15] LABS: POTASSIUM 3.7 mmol/L (3.5-5.1)
[2023-12-19 20:17] LABS: ALBUMIN 3.9 g/dl (3.4-5.0); BLOOD UREA NITROGEN 24.3 mg/dL (7-18); CALCIUM 8.9 mg/dL (8.5-10.1)
[2023-12-19 20:20] LABS: CREATININE 0.8 mg/dL (0.55-1.3)
[2023-12-19 20:22] LABS: BILIRUBIN,TOTAL 0.6 mg/dL (0.2-1)
[2023-12-19 20:24] LABS: TOT PROT 7.3 g/dl (6.4-8.2)
[2023-12-19 21:03] LABS: HIV INTERPRETATION NEGATIVE (NEGATIVE)
== END 2023-12-19 21:14 | disposition home or self-care (01) ==
LOC: JER 17:03 → JERFT 17:03
PROC: 3E033GC Introduction of Other Therapeutic Substance into Peripheral Vein, Percutaneous Approach (ICD-10-PCS; principal; 2023-12-19)
PROC: 3E033NZ Introduction of Analgesics, Hypnotics, Sedatives into Peripheral Vein, Percutaneous Approach (ICD-10-PCS; 2023-12-19)
PROC: 3E033GC Introduction of Other Therapeutic Substance into Peripheral Vein, Percutaneous Approach (ICD-10-PCS; 2023-12-19)
DX: R10.11 Right upper quadrant pain (principal); K82.9 Disease of gallbladder, unspecified; R11.0 Nausea; G89.29 Other chronic pain
CPT/HCPCS: 36415; 76705-TC; 80053; 83690; 85025; 85610; 85730; 86803; 86850; 86900; 86901; 87389; 99284-25; J0131